=== PATIENT | female | born 1940 | race Caucasian/White ===

== ENCOUNTER 2019-06-11 13:45 | Outpatient (RCR) | payer MEDICARE, SELFPAY ==
[2019-05-21 13:58] VITALS: BP 126/79; PULSE 107; RESP 22; TEMP 36.5; BMI 29.2
[2019-05-21 16:59] LABS: Hematocrit 38.9 % (37-47); Hemoglobin 12.4 g/dL (12.0-15.0); Mean Corp Hgb Conc 31.9 g/dL (32-36); Mean Corpuscular Hgb 32.9 pg (27.0-32.0); Mean Corpuscular Volume 103.2 fL (81-99); Mean Platelet Vol. 11.8 fl (6.2-12.0); Platelet Count 109 K/mm3 (150-450); RBC Distribution Width SD 53.4 fl (35.1-43.9); Red Blood Count 3.77 M/mm3 (4.2-5.4)
[2019-05-21 17:08] LABS: Erythrocyte Sedimentation Rate 22 mm/hr (0-30)
--- NOTE | 2019-05-21 17:14 | PCM.WC.HP ---
(1) Ulcer of right lower extremity with fat layer exposed Status: Chronic Current Visit: Yes Code(s): L97.912 - Non-pressure chronic ulcer of unspecified part of right lower leg with fat layer exposed (2) Chronic stasis dermatitis Status: Chronic Current Visit: Yes Code(s): I87.2 - Venous insufficiency (chronic) (peripheral) (3) Cellulitis of right leg Status: Resolved Current Visit: Yes Code(s): L03.115 - Cellulitis of right lower limb (4) Venous stasis ulcer of right lower leg with edema of right lower leg Status: Chronic Current Visit: Yes Code(s): I83.019 - Varicose veins of right lower extremity with ulcer of unspecified site; I83.891 - Varicose veins of right lower extremity with other complications; L97.919 - Non-pressure chronic ulcer of unspecified part of right lower leg with unspecified severity; R60.9 - Edema, unspecified (5) Peripheral vascular disease Status: Chronic Current Visit: Yes Code(s): I73.9 - Peripheral vascular disease, unspecified (6) Bilateral lower extremity edema Status: Chronic Current Visit: Yes Code(s): R60.0 - Localized edema (7) T2DM (type 2 diabetes mellitus) Status: Chronic Current Visit: Yes Code(s): E11.9 - Type 2 diabetes mellitus without complications (8) FPC current use of anticoagulant Status: Chronic Current Visit: No Code(s): Z79.01 - FPC (current) use of anticoagulants (9) Afib Status: Chronic Current Visit: No Code(s): I48.91 - Unspecified atrial fibrillation (10) Hypothyroidism, secondary Status: Chronic Current Visit: No Code(s): E03.8 - Other specified hypothyroidism (11) Hyperlipidemia Status: Chronic Current Visit: No Code(s): E78.5 - Hyperlipidemia, unspecified History of Present Illness Date of Service: 05/21/19 Chief Complaint: Right leg ulcers History of Wound: Patient is a pleasant 78-year-old female who presents to the wound healing center today, 05/21/2019 for an initial evaluation of right lower extremity ulcers. She presents today with her and daughter. The ulcers of the right lower extremity occurred about 2 months ago. She was seen by her primary care provider, Dr. Brittanie Humphries, on 04/30/2019. At that time, patient was diagnosed with cellulitis and given a 10-day course of doxycycline and topical silvadene cream. Cellulitis appears to have resolved with use of antibiotics, but ulcerations persist. Patient's has been applying Silvadene to the ulcers, and covering with gauze daily. He reports a large amount of clear, nonpurulent, odorless drainage from the wound. The patient otherwise denies any fever, chills, nausea, vomiting, or diarrhea. Denies any signs of infection, including increasing pain, redness, swelling, or purulent/foul-smelling drainage from affected area. Patient has chronic swelling of bilateral lower extremities. She has a history of peripheral vascular disease with vascular interventions about 25 to 30 years ago in her left leg. She recalls having vascular studies and ABIs completed several years ago. Patient also has chronic venous stasis dermatitis, bilateral varicosities of lower extremities, type 2 diabetes mellitus, hypertension, hyperlipidemia, A. fib, and long-term use of anticoagulants. See [facility] for additional information. 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 (Chronic) Afib (Chronic) Bilateral lower extremity edema (Chronic) Hypothyroidism, secondary (Chronic) Hyperlipidemia (Chronic) Chronic stasis dermatitis (Chronic) Ulcer of right lower extremity with fat layer exposed (Chronic) Surgical History: - - vein removal in left leg Allergies/Adverse Reactions: Allergies No Known Allergies Allergy (Verified 05/21/19 14:32) Home Medications: Ambulatory Orders Medication Instructions Recorded Aspirin [Aspirin, Baby] 81 mg PO DAILY@0800 05/21/19 Atorvastatin Calcium 10 mg PO DAILY 05/21/19 Carbidopa/Levodopa [Carbidopa-Levo TID 05/21/19 25-100 mg Odt] Carvedilol 3.125 mg PO 05/21/19 Divalproex Sodium [Divalproex 250 mg PO 05/21/19 Sodium ER] Levothyroxine Sodium 50 mcg PO DAILY 05/21/19 Lisinopril 2.5 mg PO DAILY 05/21/19 Nitroglycerin SL (ED ONLY) 0.4 mg SUBLINGUAL X1 05/21/19 [Nitrostat] Spironolactone 25 mg BID 05/21/19 Topiramate 25 BID 05/21/19 Torsemide 20 mg PO DAILY 05/21/19 Vit A/Vit C/Vit E/Zinc/Copper 05/21/19 [Preservision Areds Tablet] Warfarin Sodium 4 mg PO DAILY 05/21/19 Smoking Status: Former smoker Tobacco Use: Non-smoker Review of Systems Constitutional: Denies: Chills, Fever, Weight Change Eyes: Denies: Pain, Vision Change HEENT: Denies: Difficulty Swallowing, Sinus Congestion Cardiovascular: Reports: Palpitations, - - chronic afib. Denies: Chest Pain Respiratory: Denies: Cough, Shortness of Breath, Wheezing Gastrointestinal: Denies: Diarrhea, Nausea, Vomiting Genitourinary: Denies: Dysuria, Hematuria Musculoskeletal: Reports: Leg Pain - BLE Skin: Reports: Wounds - RLE ulcerations Neurological: Denies: Double vision, Slurred speech, Focal weakness Endocrine: Denies: Heat/ Cold Intolerance, Polydipsia, Polyuria Hematologic/ Lymphatic: Reports: Easy Bruising, Easy Bleeding - joint terminal attack controller coumadin tx d/t afib - Physical Exam Vital Signs Temp Pulse Resp BP 97.7 F L 107 H 22 H 126/79 H 05/21/19 13:58 05/21/19 13:58 05/21/19 13:58 05/21/19 13:58 General: Alert, Oriented x3, Cooperative, No apparent distress HEENT: Atraumatic, EOMI, Normocephalic Oral: Moist Mucosa Neck: Supple, No JVD, Trachea Midline Lungs: Clear to auscultation, Normal air movement, No rhonchi, No wheeze, No rales Cardiovascular: Irregular Rate - afib, - - Varicosities of bilateral lower extremities. Abdomen: Bowel Sounds Present, Soft, Non Tender Extremities: No clubbing, No cyanosis, Capillary Refill Less than 3 Seconds, No Calf Tenderness, Diminished Peripheral Pulses, Edema - 2+ pitting edema of BLE, Tenderness - tenderness to palpation of BLE Skin: No rashes - cellulitis resolved, Ulcer/ Wound - Right lower extremity ulcerations. Mild erythema surrounding ulcerations, no purulent/foul-smelling discharge. Large amounts of clear drainage, which appears to be weeping interstitial fluid draining from wounds. Tender to palpation/manipulation of wounds. Wound Measurements and Assessment WC - Nurse 1 - General Ulcer Measurement Start: 05/21/19 13:48 Freq: Status: Active Protocol: Activity Type Activity Date Activity User E-Sign Co-Sign Detail Recorded Client Recorded Date Recorded By Document 05/21/19 13:58 DL [id number] 05/21/19 14:26 DL 05/21/19 13:58 Wound Center Nurse 1 [Ulcer Assessment] #2 Lateral RLE -Current Size (cm) - Length 2.3 -Current Size (cm) - Width 1.4 -Current Size (cm) - Depth 0.1 -Total Square Cm 3.22 -Photo Taken Yes -Exudate Amt Medium -Exudate Type Serosanguineous -Wound Margin Indistinct, Non -Visible -Granulation Amt None Present (0 %) -Necrosis Amt Small (1-33%) -Necrotic Tissue Type Adherent Slough -Structure Exposed N/A -Texture (Leena-wound Skin Appearance) Localized Edema ,Scarring -Moisture (Leena-wound Skin Appearance Weeping ) -Color (Leena-wound Skin Appearance) Erythema, Hemosiderin Staining -Temperature (Leena-wound Skin No Abnormality Appearance) (Pt Warm) -Tenderness on Palpation (Leena-wound No Skin Appearance) -Ulcer Cleansing Wound Cleanser -Foul Odor after Cleansing No -Anesthetic Used 4% Lidocaine Solution #1 Medial RLE Cluster -Current Size (cm) - Length 1.4 -Current Size (cm) - Width 1.8 -Current Size (cm) - Depth 0.1 -Total Square Cm 2.52 -Photo Taken Yes -Exudate Amt Medium -Exudate Type Serosanguineous -Wound Margin Indistinct, Non -Visible -Granulation Amt None Present (0 %) -Necrosis Amt Small (1-33%) -Necrotic Tissue Type Adherent Slough -Structure Exposed N/A -Texture (Leena-wound Skin Appearance) Localized Edema ,Scarring -Moisture (Leena-wound Skin Appearance Weeping,Dry/ ) Scaly -Color (Leena-wound Skin Appearance) Erythema, Hemosiderin Staining -Temperature (Leena-wound Skin No Abnormality Appearance) (Pt Warm) -Tenderness on Palpation (Leena-wound No Skin Appearance) -Ulcer Cleansing Wound Cleanser -Foul Odor after Cleansing No -Anesthetic Used 5% Lidocaine Gel [Edema Assessment] -Right Calf (cm) 40 -Right Ankle (cm) 22.8 -Left Calf (cm) 39.6 -Left Ankle (cm) 23.2 WC - Nurse 2 - General Ulcer CM Notes Start: 05/21/19 13:48 Freq: Status: Active Protocol: Activity Type Activity Date Activity User E-Sign Co-Sign Detail Recorded Client Recorded Date Recorded By Document 05/21/19 15:24 DV [id number] 05/21/19 15:34 DV 05/21/19 15:24 Wound Center Nurse 2 [Procedure/Treatment] #2 Lateral RLE -Time 15:29 -Correct Patient Yes -Correct Side, Site, Position Yes -Correct Procedure Yes -Procedure Performed Yes -Type of Procedure Debridement -Clinical Debridement Subcutaneous -Post Debridement Size (cm) - Length 0.9 -Post Debridement Size (cm) - Width 0.8 -Post Debridement Size (cm) - Depth 0.2 -Total Square Cm 0.72 -Wound/Ulcer Outcome Not Healed -Ulcer Cleansing Rinsed/ Irrigated with Saline -Foul Odor after Cleansing No -Bioengineered Tissue No -Bleeding Controlled with Pressure -Offloading No -Treatment Response Procedure Tolerated Well #1 Medial RLE Cluster -Time 15:28 -Correct Patient Yes -Correct Side, Site, Position Yes -Correct Procedure Yes -Procedure Performed Yes -Type of Procedure Debridement -Clinical Debridement Subcutaneous -Post Debridement Size (cm) - Length 1.0 -Post Debridement Size (cm) - Width 1.9 -Post Debridement Size (cm) - Depth 0.1 -Total Square Cm 1.90 -Wound/Ulcer Outcome Not Healed -Ulcer Cleansing Rinsed/ Irrigated with Saline -Foul Odor after Cleansing No -Bioengineered Tissue No -Bleeding Controlled with Pressure -Offloading No -Treatment Response Procedure Tolerated Well [See Physician Procedure note for Specifics] Pain Scale: 0-10 Numeric [Pain] -Is Patient Pain Free? Yes Musculoskeletal: Tenderness - Tenderness on palpation/manipulation of ulcerations of right lower extremity. Psych/Mental Status: Normal Affect, Appropriate Debridement Note Post-Debridement Measurements/Treatment WC - Nurse 2 - General Ulcer CM Notes Start: 05/21/19 13:48 Freq: Status: Active Protocol: Activity Type Activity Date Activity User E-Sign Co-Sign Detail Recorded Client Recorded Date Recorded By Document 05/21/19 15:24 DV [id number] 05/21/19 15:34 DV 05/21/19 15:24 Wound Center Nurse 2 #2 Lateral RLE -Time 15:29 -Correct Patient Yes -Correct Side, Site, Position Yes -Correct Procedure Yes -Procedure Performed Yes -Type of Procedure Debridement -Clinical Debridement Subcutaneous -Post Debridement Size (cm) - Length 0.9 -Post Debridement Size (cm) - Width 0.8 -Post Debridement Size (cm) - Depth 0.2 -Total Square Cm 0.72 -Wound/Ulcer Outcome Not Healed -Ulcer Cleansing Rinsed/ Irrigated with Saline -Foul Odor after Cleansing No -Bioengineered Tissue No -Bleeding Controlled with Pressure -Offloading No -Treatment Response Procedure Tolerated Well #1 Medial RLE Cluster -Time 15:28 -Correct Patient Yes -Correct Side, Site, Position Yes -Correct Procedure Yes -Procedure Performed Yes -Type of Procedure Debridement -Clinical Debridement Subcutaneous -Post Debridement Size (cm) - Length 1.0 -Post Debridement Size (cm) - Width 1.9 -Post Debridement Size (cm) - Depth 0.1 -Total Square Cm 1.90 -Wound/Ulcer Outcome Not Healed -Ulcer Cleansing Rinsed/ Irrigated with Saline -Foul Odor after Cleansing No -Bioengineered Tissue No -Bleeding Controlled with Pressure -Offloading No -Treatment Response Procedure Tolerated Well Pain Scale: 0-10 Numeric Is Patient Pain Free? Yes Wound debrided: Medial RLE ulcer cluster Laterality: Right Type of Debridement: Excisional debridement Anesthesia Used: 5% Lidocaine Gel Depth: in the subcutaneous layer Percentage of wound debrided: 100 Instrument Used: 5mm curette Tissue Removed: Slough devitalized tissue Severity: Fat Layer Exposed Amount of bleeding with debridement: Mild Bleeding Controlled with: Compression and gauze Patient tolerated procedure well - Additional Wound Wound debrided: Lateral RLE ulcer Laterality: Right Type of Debridement: Excisional debridement Anesthesia Used: 4% Lidocaine Solution Depth: in the subcutaneous layer Percentage of wound debrided: 100 Instrument Used: 5mm curette Tissue Removed: Slough and devitalized tissue Severity: Fat Layer Exposed Amount of bleeding with debridement: Mild Bleeding Controlled with: Compression and gauze Patient tolerated procedure: Patient tolerated procedure well Assessment/Plan Active Problems Venous stasis ulcer of right lower leg with edema of right lower leg (Chronic) Peripheral vascular disease (Chronic) T2DM (type 2 diabetes mellitus) (Chronic) Bilateral lower extremity edema (Chronic) Chronic stasis dermatitis (Chronic) Ulcer of right lower extremity with fat layer exposed (Chronic) Assessment: Venous stasis ulcer of right lower extremity. Bilateral lower extremity edema. Peripheral vascular disease. Chronic stasis dermatitis. Cellulitis-- resolved. T2DM. A. fib. Long-term current use of anticoagulants. Hypertension. Hypothyroidism. Hyperlipidemia Plan: Debridement performed today in clinic as annotated above. Melgisorb applied to right lower extremity ulcers, covered with gauze and ABD and secured with tape. Light single-layer Tubigrip applied to right lower extremity. At home wound-care instructions: Change Melgisorb dressing daily. Cover with gauze and ABD pad to absorb any excess drainage. May remove dressing to shower. Compression: Single-layer Tubigrip. Off-loading: Keep legs elevated at or above waist level when seated. Avoid long periods of standing, or dangling of the legs. Diet: Patient encouraged to increase protein and vitamin C intake while taking caution to avoid high carbohydrate and/or sugar intake. Labs/cultures/imaging: Routine baseline labwork ordered. Venous and arterial studies ordered. Follow-up: Return to clinic in 1 week for re-evaluation. Return sooner or report to the emergency room should symptoms worsen, or new symptoms arise. Code Visit Office Visits / Consults: [id number] OV L4 New [id number]: [id number] Lachelle subq tissue 20 sq cm/<
[2019-05-21 17:28] LABS: Hemoglobin A1c 6.8 % (4.2-6.3)
[2019-05-21 17:32] LABS: ALB/GLOB Ratio 0.8 RATIO (0.9-2.4); AST(SGOT) 12 U/L (15-37); Alanine Aminotransfer ALT/SGPT 9 U/L (13-56); Albumin, Serum 3.2 g/dL (3.2-5.0); Alkaline Phosphatase 65 U/L (45-117); Anion Gap 6 (5-15); BUN 23 mg/dL (7-18); BUN/Creat Ratio 21.3 RATIO (10-20); Calcium,Total 8.9 mg/dL (8.5-10.1); Chloride 111 mmol/L (98-107); Creatinine, Serum 1.08 mg/dL (0.55-1.02); EST Glomerular Filtration Rate 52 mL/min (>60); Est Glom Filt Rate - Afr Amer 63 mL/min (>60); Estimated Creatinine Clearance 40.19 ml/min; Globulin 4.2 g/dL (2.2-4.2); Glucose 113 mg/dL (74-106); Potassium 4.5 mmol/L (3.5-5.1); Prealbumin 21.2 mg/dL (20.0-40.0); Protein, Total 7.4 g/dL (6.4-8.2); Sodium Level 140 mmol/L (136-145)
[2019-05-28 14:06] VITALS: RESP 18; TEMP 36.4; BMI 29.2
[2019-05-28 18:56] LABS: M R Staph aureus DNA By PCR Negative (Negative); Probe Check PASS; Specimen Processing Control PASS; Staph aureus DNA By PCR NEGATIVE (Negative)
--- NOTE | 2019-05-29 11:51 | PN.PCM_ITS ---
(1) Ulcer of right lower extremity with fat layer exposed Status: Chronic Current Visit: Yes Code(s): L97.912 - Non-pressure chronic ulcer of unspecified part of right lower leg with fat layer exposed (2) Chronic stasis dermatitis Status: Chronic Current Visit: Yes Code(s): I87.2 - Venous insufficiency (chronic) (peripheral) (3) Cellulitis of right leg Status: Resolved Current Visit: No Code(s): L03.115 - Cellulitis of right lower limb (4) Venous stasis ulcer of right lower leg with edema of right lower leg Status: Chronic Current Visit: Yes Code(s): I83.019 - Varicose veins of right lower extremity with ulcer of unspecified site; I83.891 - Varicose veins of right lower extremity with other complications; L97.919 - Non-pressure chronic ulcer of unspecified part of right lower leg with unspecified severity; R60.9 - Edema, unspecified (5) Peripheral vascular disease Status: Chronic Current Visit: Yes Code(s): I73.9 - Peripheral vascular disease, unspecified (6) Bilateral lower extremity edema Status: Chronic Current Visit: Yes Code(s): R60.0 - Localized edema (7) T2DM (type 2 diabetes mellitus) Status: Chronic Current Visit: No Code(s): E11.9 - Type 2 diabetes mellitus without complications (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 Status: Chronic Current Visit: No Code(s): Z79.01 - long-term (current) use of anticoagulants (9) Afib Status: Chronic Current Visit: No Code(s): I48.91 - Unspecified atrial fibrillation (10) Hypothyroidism, secondary Status: Chronic Current Visit: No Code(s): E03.8 - Other specified hypothyroidism (11) Hyperlipidemia Status: Chronic Current Visit: No Code(s): E78.5 - Hyperlipidemia, unspecified Type of Wound Date of Service: 05/28/19 Chief Complaint: Right leg ulcers History of Wound: Patient is a pleasant 78-year-old female who presents to the wound healing center 05/21/2019 for an initial evaluation of right lower extremity ulcers. She presents today with her and daughter. The ulcers of the right lower extremity occurred about 2 months ago. She was seen by her primary care provider, Dr. Brittanie Humphries, on 04/30/2019. At that time, patient was diagnosed with cellulitis and given a 10-day course of doxycycline and topical silvadene cream. Cellulitis appears to have resolved with use of antibiotics, but ulcerations persist. Patient's has been applying Silvadene to the ulcers, and covering with gauze daily. He reports a large amount of clear, nonpurulent, odorless drainage from the wound. The patient otherwise denies any fever, chills, nausea, vomiting, or diarrhea. Denies any signs of infection, including increasing pain, redness, swelling, or purulent/foul-smelling drainage from affected area. Patient has chronic swelling of bilateral lower extremities. She has a history of peripheral vascular disease with vascular interventions about 25 to 30 years ago in her left leg. She recalls having vascular studies and ABIs completed several years ago. Patient also has chronic venous stasis dermatitis, bilateral varicosities of lower extremities, type 2 diabetes mellitus, hypertension, hyperlipidemia, A. fib, and long-term use of anticoagulants. See [facility] for additional information. Progress of Wound: No significant improvement in size of right lower extremity ulcers. New ulcer has developed on right lateral leg, below-knee, and several smaller ulcers have developed within the right quinteros cluster. The ulcers c ontinue to drain a large amount of serous fluid. Patient has also developed a red, itchy rash on bilateral lower extremities, but primarily affecting her right. This appears to be a form of dermatitis. Patient's and daughter report that she has suffered with this type of rash for several years, and was previously seen by a advisory services associate, but no changes to treatment were made. The patient denies any fever, chills, nausea, vomiting, or diarrhea. Denies any increasing pain, swelling, or purulent/foul-smelling drainage from affected area. - Physical Exam Vital Signs Temp Pulse Resp BP 97.6 F L 107 H 18 126/79 H 05/28/19 14:06 05/21/19 13:58 05/28/19 14:06 05/21/19 13:58 General: Alert, Cooperative, No apparent distress HEENT: Atraumatic, EOMI, Normocephalic Oral: Moist Mucosa Neck: Supple, No JVD, Trachea Midline Lungs: Normal air movement Cardiovascular: Regular rate Extremities: No clubbing, No cyanosis, Edema - 2+ pitting edema of BLE, Tender ness - Tenderness to palpation of BLE Skin: Ulcer/ Wound - Right lower extremity ulcerations. Moderate increase in erythema surrounding ulcerations, no purulent/foul-smelling discharge. Large amounts of serous drainage, which appears to be weeping interstitial fluid draining from wounds. Tender to palpation/manipulation of wounds., Rash Present - Erythematous, dry, papular rash of bilateral lower extremities, right worse than left. Rash also present on bilateral arms and hands. Wound Measurements and Assessment WC - Nurse 1 - General Ulcer Measurement Start: 05/21/19 13:48 Freq: Status: Active Protocol: Activity Type Activity Date Activity User E-Sign Co-Sign Detail Recorded Client Recorded Date Recorded By Document 05/28/19 14:06 [facility] [id number] 05/28/19 14:16 [facility] 05/28/19 14:06 Wound Center Nurse 1 [Ulcer Assessment] #2 Right Quinteros Cluster -Combined with other wound No -Current Size (cm) - Length 0.6 -Current Size (cm) - Width 0.6 -Current Size (cm) - Depth 0.2 -Total Square Cm 0.36 -Photo Taken No -Epithelialization None Present -Tunneling No -Undermining/Tunneling No -Circular Undermining No -Exudate Amt Small -Exudate Type Serosanguineous -Wound Margin Distinct, Outline Attached -Granulation Amt None Present (0 %) -Slough/Fibrin Yes -Necrosis Amt Large (67-100%) -Necrotic Tissue Type Adherent Slough -Texture (Ivonne-wound Skin Appearance) Assessed, Scarring -Moisture (Ivonne-wound Skin Appearance Assessed,Dry/ ) Scaly -Color (Ivonne-wound Skin Appearance) Assessed, Hemosiderin Staining -Temperature (Ivonne-wound Skin No Abnormality Appearance) (Pt Warm) -Tenderness on Palpation (Ivonne-wound Yes Skin Appearance) -Ulcer Cleansing Rinsed/ Irrigated with Saline -Foul Odor after Cleansing No -Anesthetic Used 4% Lidocaine Solution #1 Medial RLE Cluster -Combined with other wound No -Current Size (cm) - Length 1.3 -Current Size (cm) - Width 1.7 -Current Size (cm) - Depth 0.2 -Total Square Cm 2.21 -Photo Taken No -Epithelialization None Present -Tunneling No -Undermining/Tunneling No -Circular Undermining No -Exudate Amt Small -Exudate Type Serosanguineous -Wound Margin Distinct, Outline Attached -Granulation Amt None Present (0 %) -Slough/Fibrin Yes -Necrosis Amt Large (67-100%) -Necrotic Tissue Type Adherent Slough -Texture (Ivonne-wound Skin Appearance) Assessed, Scarring -Moisture (Ivonne-wound Skin Appearance Assessed,Dry/ ) Scaly -Color (Ivonne-wound Skin Appearance) Assessed, Hemosiderin Staining -Temperature (Ivonne-wound Skin No Abnormality Appearance) (Pt Warm) -Tenderness on Palpation (Ivonne-wound Yes Skin Appearance) -Ulcer Cleansing Rinsed/ Irrigated with Saline -Foul Odor after Cleansing No -Anesthetic Used 4% Lidocaine Solution [Edema Assessment] -Lower Limb Edema Present Yes -Right Calf (cm) 39.6 -Right Ankle (cm) 23.4 WC - Nurse 2 - General Ulcer CM Notes Start: 05/21/19 13:48 Freq: Status: Active Protocol: Activity Type Activity Date Activity User E-Sign Co-Sign Detail Recorded Client Recorded Date Recorded By Document 05/28/19 14:39 DV [id number] 05/28/19 14:51 DV 05/28/19 14:39 Wound Center Nurse 2 [Procedure/Treatment] #3 Lateral RLE -Time 14:50 -Correct Patient Yes -Correct Side, Site, Position Yes -Correct Procedure Yes -Procedure Performed Yes -Type of Procedure Debridement -Clinical Debridement Subcutaneous -Post Debridement Size (cm) - Length 0.5 -Post Debridement Size (cm) - Width 0.7 -Post Debridement Size (cm) - Depth 0.1 -Total Square Cm 0.35 -Wound/Ulcer Outcome Not Healed -Ulcer Cleansing Rinsed/ Irrigated with Saline -Foul Odor after Cleansing No -Bioengineered Tissue No -Bleeding Controlled with Pressure -Offloading No -Treatment Response Procedure Tolerated Well #2 Right Quinteros Cluster -Time 14:44 -Correct Patient Yes -Correct Side, Site, Position Yes -Correct Procedure Yes -Procedure Performed Yes -Type of Procedure Debridement -Clinical Debridement Subcutaneous -Post Debridement Size (cm) - Length 3.0 -Post Debridement Size (cm) - Width 2.0 -Post Debridement Size (cm) - Depth 0.2 -Total Square Cm 6.00 -Wound/Ulcer Outcome Not Healed -Ulcer Cleansing Rinsed/ Irrigated with Saline -Foul Odor after Cleansing No -Bioengineered Tissue No -Bleeding Controlled with Pressure -Offloading No -Treatment Response Procedure Tolerated Well #1 Medial RLE Cluster -Time 14:42 -Correct Patient Yes -Correct Side, Site, Position Yes -Correct Procedure Yes -Procedure Performed Yes -Type of Procedure Debridement -Clinical Debridement Subcutaneous -Post Debridement Size (cm) - Length 2.0 -Post Debridement Size (cm) - Width 0.7 -Post Debridement Size (cm) - Depth 0.2 -Total Square Cm 1.40 -Wound/Ulcer Outcome Not Healed [See Physician Procedure note for Specifics] Pain Scale: 0-10 Numeric [Pain] -Is Patient Pain Free? Yes Musculoskeletal: Tenderness - Tenderness to palpation/manipulation of wounds Psych/Mental Status: Normal Affect, Appropriate Debridement Note Post-Debridement Measurements/Treatment WC - Nurse 2 - General Ulcer CM Notes Start: 05/21/19 13:48 Freq: Status: Active Protocol: Activity Type Activity Date Activity User E-Sign Co-Sign Detail Recorded Client Recorded Date Recorded By Document 05/21/19 15:24 DV [id number] 05/21/19 15:34 DV Document 05/28/19 14:39 DV [id number] 05/28/19 14:51 DV 05/21/19 05/28/19 15:24 14:39 Wound Center Nurse 2 #3 Lateral RLE -Time 14:50 -Correct Patient Yes -Correct Side, Site, Position Yes -Correct Procedure Yes -Procedure Performed Yes -Type of Procedure Debridement -Clinical Debridement Subcutaneous -Post Debridement Size (cm) - Length 0.5 -Post Debridement Size (cm) - Width 0.7 -Post Debridement Size (cm) - Depth 0.1 -Total Square Cm 0.35 -Wound/Ulcer Outcome Not Healed -Ulcer Cleansing Rinsed/ Irrigated with Saline -Foul Odor after Cleansing No -Bioengineered Tissue No -Bleeding Controlled with Pressure -Offloading No -Treatment Response Procedure Tolerated Well #2 Right Quinteros Cluster -Time 15:29 14:44 -Correct Patient Yes Yes -Correct Side, Site, Position Yes Yes -Correct Procedure Yes Yes -Procedure Performed Yes Yes -Type of Procedure Debridement Debridement -Clinical Debridement Subcutaneous Subcutaneous -Post Debridement Size (cm) - Length 0.9 3.0 -Post Debridement Size (cm) - Width 0.8 2.0 -Post Debridement Size (cm) - Depth 0.2 0.2 -Total Square Cm 0.72 6.00 -Wound/Ulcer Outcome Not Healed Not Healed -Ulcer Cleansing Rinsed/ Rinsed/ Irrigated with Irrigated with Saline Saline -Foul Odor after Cleansing No No -Bioengineered Tissue No No -Bleeding Controlled with Pressure Pressure -Offloading No No -Treatment Response Procedure Procedure Tolerated Well Tolerated Well #1 Medial RLE Cluster -Time 15:28 14:42 -Correct Patient Yes Yes -Correct Side, Site, Position Yes Yes -Correct Procedure Yes Yes -Procedure Performed Yes Yes -Type of Procedure Debridement Debridement -Clinical Debridement Subcutaneous Subcutaneous -Post Debridement Size (cm) - Length 1.0 2.0 -Post Debridement Size (cm) - Width 1.9 0.7 -Post Debridement Size (cm) - Depth 0.1 0.2 -Total Square Cm 1.90 1.40 -Wound/Ulcer Outcome Not Healed Not Healed -Ulcer Cleansing Rinsed/ Irrigated with Saline -Foul Odor after Cleansing No -Bioengineered Tissue No -Bleeding Controlled with Pressure -Offloading No -Treatment Response Procedure Tolerated Well Pain Scale: 0-10 Numeric Is Patient Pain Free? Yes Yes Wound debrided: Medial RLE cluster Laterality: Right Type of Debridement: Excisional debridement Anesthesia Used: 5% Lidocaine Gel Depth: in the subcutaneous layer Percentage of wound debrided: 100 Instrument Used: 3mm curette Tissue Removed: Slough and devitalized tissue Severity: Fat Layer Exposed Amount of bleeding with debridement: Mild Bleeding Controlled with: Compression and gauze Patient tolerated procedure well - Additional Wound Wound debrided: RLE quinteros cluster Laterality: Right Type of Debridement: Excisional debridement Anesthesia Used: 5% Lidocaine Gel Depth: in the subcutaneous layer Percentage of wound debrided: 100 Instrument Used: 3mm curette Tissue Removed: Slough and devitalized tissue Severity: Fat Layer Exposed Amount of bleeding with debridement: Mild Bleeding Controlled with: Compression and gauze Patient tolerated procedure: Patient tolerated procedure well - Additional Wound Wound debrided: Lateral RLE Laterality: Right Type of Debridement: Excisional debridement Anesthesia Used: 5% Lidocaine Gel Depth: in the subcutaneous layer Percentage of wound debrided: 100 Instrument Used: 3mm curette Tissue Removed: Slough and devitalized tissue Severity: Fat Layer Exposed Amount of bleeding with debridement: Mild Bleeding Controlled with: Compression and gauze Patient tolerated procedure: Patient tolerated procedure well Assessment/Plan Active Problems Venous stasis ulcer of right lower leg with edema of right lower leg (Chronic) Peripheral vascular disease (Chronic) Bilateral lower extremity edema (Chronic) Chronic stasis dermatitis (Chronic) Ulcer of right lower extremity with fat layer exposed (Chronic) Assessment: Venous stasis ulcer of right lower extremity. Bilateral lower extremity edema. Peripheral vascular disease. Chronic stasis dermatitis. Cellulitis-- resolved. T2DM. A. fib. Long-term current use of anticoagulants. Hypertension. Hypothyroidism. Hyperlipidemia Plan: Debridement performed today in clinic as annotated above. Aquacel Ag applied to right lower extremity ulcers, covered with gauze and secured with tape. Light single-layer Tubigrip applied to right lower extremity. At home wound-care instructions: Change Aquacel AG dressing daily. Cover with gauze and ABD pad to absorb any excess drainage. May remove dressing to shower. No soaking or submerging of wounds. Prescription given for triamcinolone 0.5% ointment. Apply 2-3x/ day to the ivonne-ulcer areas, but do not place on any open wounds/ulcers. Prescription for clindamycin given due to concern for infection. Cultures collected, we will call with any changes to antibiotic therapy. Compression: Single-layer Tubigrip. Will await results of ABIs before increasing compression. Off-loading: Keep legs elevated at or above waist level when seated. Avoid long periods of standing, or dangling of the legs. Diet: Patient encouraged to increase protein and vitamin C intake while taking caution to avoid high carbohydrate and/or sugar intake. Labs/cultures/imaging: Culture collected from right quinteros ulcer. Routine baseline labwork reviewed. Venous and arterial studies ordered-scheduled for 05/31/2019. Follow-up: Return to clinic in 1 week for re-evaluation. Return sooner or report to the emergency room should symptoms worsen, or new symptoms arise. Note: [employer] speech recognition supervisor publications production software was used to create portions of this document. Sound-alike and misspelled words, as well as other supervisor publications production errors may be contained in the documentation. Code Visit [id number]: [id number] Lachelle subq tissue 20 sq cm/<
[2019-06-07 09:02] VITALS: BP 103/53; PULSE 73; RESP 20; TEMP 36.7; BMI 29.2
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
[2019-06-11 13:55] VITALS: BP 141/45; PULSE 83; RESP 16; TEMP 36.1; BMI 29.2
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
== END 2019-06-14 23:59 ==
LOC: WC 13:45
PROVIDERS: Family Provider Internal Medicine; PCP Internal Medicine; Referring Provider Nurse Practitioner Family; Visit Provider Nurse Practitioner Family
DX: I83.018 Varicose veins of right lower extremity with ulcer other part of lower leg (principal); L97.812 Non-pressure chronic ulcer of other part of right lower leg with fat layer exposed; E11.9 Type 2 diabetes mellitus without complications; I48.20 Chronic atrial fibrillation, unspecified; E03.8 Other specified hypothyroidism; E78.5 Hyperlipidemia, unspecified; I10 Essential (primary) hypertension; E11.51 Type 2 diabetes mellitus with diabetic peripheral angiopathy without gangrene; Z79.899 Other long term (current) drug therapy; Z79.01 Long term (current) use of anticoagulants; Z79.82 Long term (current) use of aspirin; Z87.891 Personal history of nicotine dependence; T21.14XA Burn of first degree of lower back, initial encounter; X08.8XXA Exposure to other specified smoke, fire and flames, initial encounter; S51.811A Laceration without foreign body of right forearm, initial encounter; W22.01XA Walked into wall, initial encounter; Y93.01 Activity, walking, marching and hiking; Y92.89 Other specified places as the place of occurrence of the external cause
CPT/HCPCS: 11042; 80053; 83036; 84134; 85027; 85652; 87070; 87075; 87077; 87186; 87205; 87640; 99204; G0463

== ENCOUNTER 2019-07-12 13:00 | Outpatient (RCR) | payer MEDICARE, SELFPAY ==
[2019-06-15 01:05] VITALS: BP 141/45; PULSE 83; RESP 16; TEMP 36.1
[2019-06-18 13:15] VITALS: BP 112/87; PULSE 87; RESP 20; TEMP 36.9; BMI 29.2
--- NOTE | 2019-06-18 16:34 | PCM.WC.PN ---
(1) Skin tear of right forearm without complication Status: Acute Current Visit: Yes Qualifiers: Encounter type: subsequent encounter Qualified Code(s): S51.811D - Laceration without foreign body of right forearm, subsequent encounter Code(s): S51.811A - Laceration without foreign body of right forearm, initial encounter (2) Bilateral lower extremity edema Status: Chronic Current Visit: Yes Code(s): R60.0 - Localized edema (3) Chronic stasis dermatitis Status: Chronic Current Visit: Yes Code(s): I87.2 - Venous insufficiency (chronic) (peripheral) (4) Peripheral vascular disease Status: Chronic Current Visit: Yes Code(s): I73.9 - Peripheral vascular disease, unspecified (5) T2DM (type 2 diabetes mellitus) Status: Chronic Current Visit: No Code(s): E11.9 - Type 2 diabetes mellitus without complications (6) Ulcer of right lower extremity with fat layer exposed Status: Chronic Current Visit: Yes Code(s): L97.912 - Non-pressure chronic ulcer of unspecified part of right lower leg with fat layer exposed (7) Venous stasis ulcer of right lower leg with edema of right lower leg Status: Chronic Current Visit: Yes Code(s): I83.019 - Varicose veins of right lower extremity with ulcer of unspecified site; I83.891 - Varicose veins of right lower extremity with other complications; L97.919 - Non-pressure chronic ulcer of unspecified part of right lower leg with unspecified severity; R60.9 - Edema, unspecified Type of Wound Date of Service: 06/18/19 Chief Complaint: Right leg ulcers; burn on back (resolved); skin tear of right forearm History of Wound: Patient is a pleasant 78-year-old female who presented to the wound healing center on 05/21/2019 for an initial evaluation of right lower extremity ulcers. The ulcers of the right lower extremity occurred about 2 months prior. She was seen by her primary care provider, Dr. Brittanie Humphries, on 04/30/2019. At that time, patient was diagnosed with cellulitis and given a 10-day course of doxycycline and topical silvadene cream. Cellulitis appears to have resolved with use of antibiotics, but ulcerations persist. Patient's has been applying Silvadene to the ulcers, and covering with gauze daily. He reports a large amount of clear, nonpurulent, odorless drainage from the wound. The patient otherwise denies any fever, chills, nausea, vomiting, or diarrhea. Denies any signs of infection, including increasing pain, redness, swelling, or purulent/foul-smelling drainage from affected area. Patient has chronic swelling of bilateral lower extremities. She has a history of peripheral vascular disease with vascular interventions about 25 to 30 years ago in her left leg. She recalls having vascular studies and ABIs completed several years ago. Patient also has chronic venous stasis dermatitis, bilateral varicosities of lower extremities, type 2 diabetes mellitus, hypertension, hyperlipidemia, A. fib, and long-term use of anticoagulants. See [facility] for additional information. In mid-May 2019, patient was admitted to [facility] for a cardioversion and suffered 1st degree loera to her back as a result. She was given Silvadene cream to apply to loera, which she states helped with pain. The burn resolved within 1 week and patient was instructed to stop Silvadene cream. She has an upcoming follow-up appt with her PCP for further monitoring. On 06/11/2019, patient reports she was walking out of the bathroom and hit her right forearm on the wooden door, creating a skin tear. She reports a large amount of bleeding, which eventually subsided with compression. She had been keeping the skin tear covered with gauze dressing until evaluated at the [facility]. She was then switched to Adaptic and gauze dressings. Progress of Wound: Skin tear of right forearm is healing well without signs of infection. Patient is keeping RFA covered with Adaptic and gauze dressings. Patient denies any increasing pain, swelling, or erythema of right forearm. She denies any drainage from the right forearm skin tears. Ulcers of right lower extremity are very dry at today's visit, with dried blood and devitalized tissue present in wound bed. Patient reports no drainage from right lower extremity ulcers in the last week. The red, itchy rash on her right lower extremity has resolved, and the dry skin of her right lower extremity has improved with the use of triamcinolone ointment. The patient denies any fever, chills, nausea, vomiting, or diarrhea. Denies any increasing pain, redness, swelling, or purulent/foul-smelling drainage from affected areas. Patient has vascular studies scheduled for 06/20/2019. - Physical Exam Vital Signs Temp Pulse Resp BP 98.5 F 87 20 H 112/87 H 06/18/19 13:15 06/18/19 13:15 06/18/19 13:15 06/18/19 13:15 General: Alert, Cooperative, No apparent distress HEENT: Atraumatic, EOMI, Normocephalic Oral: Moist Mucosa Lungs: Normal air movement Cardiovascular: Irregular Rate Extremities: No clubbing, No cyanosis, Capillary Refill Less than 3 Seconds, Diminished Peripheral Pulses, Edema - 1+ pitting edema bilateral lower extremities. Several varicosities present in bilateral lower extremities., Tenderness - Tenderness to palpation of bilateral lower extremities. Skin: No rashes - Rash of right lower extremity is resolved. Dry, scaly skin of right lower extremity is improved., Ulcer/ Wound - Right lower extremity ulcerations with fat layer exposed. RLE ulcers with moderate to large amounts of dried blood and devitalized tissue present. Leena-ulcer erythema is stable. No purulent/foul-smelling drainage. No warmth to palpation. Bilateral lower extremities tender to palpation. No tunneling or undermining of ulcers, no probing to bone. Wound Measurements and Assessment WC - Nurse 1 - General Ulcer Measurement Start: 06/18/19 13:14 Freq: Status: Active Protocol: Activity Type Activity Date Activity User E-Sign Co-Sign Detail Recorded Client Recorded Date Recorded By Document 06/18/19 13:15 DL [id number] 06/18/19 13:25 DL 06/18/19 13:15 Wound Center Nurse 1 [Ulcer Assessment] #4- RFA SKIN TEAR CLUSTER -Current Size (cm) - Length 3.3 -Current Size (cm) - Width 6.3 -Current Size (cm) - Depth 0.2 -Total Square Cm 20.79 -Photo Taken No -Exudate Amt None Present -Wound Margin Distinct, Outline Attached -Granulation Amt None Present (0 %) -Necrosis Amt Large (67-100%) -Necrotic Tissue Type Adherent Slough -Structure Exposed N/A -Texture (Leena-wound Skin Appearance) Localized Edema ,Scarring -Moisture (Leena-wound Skin Appearance Dry/Scaly ) -Color (Leena-wound Skin Appearance) Hemosiderin Staining,Rubor -Temperature (Leena-wound Skin No Abnormality Appearance) (Pt Warm) -Tenderness on Palpation (Leena-wound No Skin Appearance) -Ulcer Cleansing Rinsed/ Irrigated with Saline -Foul Odor after Cleansing No -Anesthetic Used 4% Lidocaine Solution #3- LATERAL RLE - SUPERIOR -Current Size (cm) - Length 0.3 -Current Size (cm) - Width 0.2 -Current Size (cm) - Depth 0.1 -Total Square Cm 0.06 -Photo Taken No -Exudate Amt None Present -Granulation Amt Small (1-33%) -Granulation Quality [place] -Necrosis Amt Small (1-33%) -Necrotic Tissue Type Adherent Slough -Structure Exposed N/A -Texture (Leena-wound Skin Appearance) Scarring -Moisture (Leena-wound Skin Appearance Dry/Scaly ) -Color (Leena-wound Skin Appearance) Hemosiderin Staining -Temperature (Leena-wound Skin No Abnormality Appearance) (Pt Warm) -Tenderness on Palpation (Leena-wound No Skin Appearance) -Ulcer Cleansing Rinsed/ Irrigated with Saline -Foul Odor after Cleansing No -Anesthetic Used 5% Lidocaine Gel #2 LATERAL RLE - INFERIOR -Current Size (cm) - Length 0 -Current Size (cm) - Width 0 -Current Size (cm) - Depth 0 -Total Square Cm 0 -Photo Taken Yes -Exudate Amt None Present -Wound Margin Flat & Intact -Granulation Amt Small (1-33%) -Granulation Quality [place] -Necrosis Amt None Present (0 %) -Structure Exposed N/A -Texture (Leena-wound Skin Appearance) Scarring -Moisture (Leena-wound Skin Appearance Dry/Scaly ) -Color (Leena-wound Skin Appearance) Hemosiderin Staining -Temperature (Leena-wound Skin No Abnormality Appearance) (Pt Warm) -Tenderness on Palpation (Leena-wound No Skin Appearance) -Ulcer Cleansing Rinsed/ Irrigated with Saline -Foul Odor after Cleansing No #1 MEDIAL RLE -Current Size (cm) - Length 0 -Current Size (cm) - Width 0 -Current Size (cm) - Depth 0 -Total Square Cm 0 -Photo Taken Yes -Exudate Amt None Present -Wound Margin Flat & Intact -Granulation Amt Small (1-33%) -Granulation Quality [place] -Necrosis Amt None Present (0 %) -Structure Exposed N/A -Texture (Leena-wound Skin Appearance) Scarring -Moisture (Leena-wound Skin Appearance Dry/Scaly ) -Color (Leena-wound Skin Appearance) Hemosiderin Staining -Temperature (Leena-wound Skin No Abnormality Appearance) (Pt Warm) -Tenderness on Palpation (Leena-wound No Skin Appearance) -Ulcer Cleansing Rinsed/ Irrigated with Saline -Foul Odor after Cleansing No [Edema Assessment] -Point of measurement (cm from the 34.5 medial instep) -Point of Measurement (cm from the 21 medial instep) WC - Nurse 2 - General Ulcer CM Notes Start: 06/18/19 13:14 Freq: Status: Active Protocol: Activity Type Activity Date Activity User E-Sign Co-Sign Detail Recorded Client Recorded Date Recorded By Document 06/18/19 14:12 DV [id number] 06/18/19 14:31 DV 06/18/19 14:12 Wound Center Nurse 2 [Procedure/Treatment] #4- RFA SKIN TEAR CLUSTER -Time 14:13 -Correct Patient Yes -Correct Side, Site, Position Yes -Correct Procedure No -Procedure Performed No -Wound/Ulcer Outcome Not Healed #3- LATERAL RLE - SUPERIOR -Time 14:13 -Correct Patient Yes -Correct Side, Site, Position Yes -Correct Procedure Yes -Procedure Performed Yes -Type of Procedure Debridement -Clinical Debridement Subcutaneous -Post Debridement Size (cm) - Length 0.4 -Post Debridement Size (cm) - Width 0.5 -Post Debridement Size (cm) - Depth 0.1 -Total Square Cm 0.20 -Wound/Ulcer Outcome Not Healed -Ulcer Cleansing Rinsed/ Irrigated with Saline -Foul Odor after Cleansing No -Bioengineered Tissue No -Bleeding Controlled with Pressure -Offloading No -Treatment Response Procedure Tolerated Well #2 LATERAL RLE - INFERIOR -Time 14:17 -Correct Patient Yes -Correct Side, Site, Position Yes -Correct Procedure Yes -Procedure Performed Yes -Type of Procedure Debridement -Clinical Debridement Subcutaneous -Post Debridement Size (cm) - Length 3.3 -Post Debridement Size (cm) - Width 1.7 -Post Debridement Size (cm) - Depth 0.1 -Total Square Cm 5.61 -Wound/Ulcer Outcome Not Healed -Ulcer Cleansing Rinsed/ Irrigated with Saline -Foul Odor after Cleansing No -Bioengineered Tissue No -Bleeding Controlled with Pressure -Offloading No -Treatment Response Procedure Tolerated Well #1 MEDIAL RLE -Time 14:14 -Correct Patient Yes -Correct Side, Site, Position Yes -Correct Procedure Yes -Procedure Performed Yes -Type of Procedure Debridement -Clinical Debridement Subcutaneous -Post Debridement Size (cm) - Length 2.1 -Post Debridement Size (cm) - Width 2.4 -Post Debridement Size (cm) - Depth 0.2 -Total Square Cm 5.04 -Wound/Ulcer Outcome Not Healed -Ulcer Cleansing Rinsed/ Irrigated with Saline -Foul Odor after Cleansing No -Bioengineered Tissue No -Bleeding Controlled with Pressure -Offloading No -Treatment Response Procedure Tolerated Well [See Physician Procedure note for Specifics] Musculoskeletal: Tenderness - Tenderness to palpation/manipulation of ulcers of RLE and generalized tenderness to palpation of bilateral lower extremities. Psych/Mental Status: Normal Affect, Appropriate Debridement Note Post-Debridement Measurements/Treatment WC - Nurse 2 - General Ulcer CM Notes Start: 06/18/19 13:14 Freq: Status: Active Protocol: Activity Type Activity Date Activity User E-Sign Co-Sign Detail Recorded Client Recorded Date Recorded By Document 06/18/19 14:12 DV [id number] 06/18/19 14:31 DV 06/18/19 14:12 Wound Center Nurse 2 #4- RFA SKIN TEAR CLUSTER -Time 14:13 -Correct Patient Yes -Correct Side, Site, Position Yes -Correct Procedure No -Procedure Performed No -Wound/Ulcer Outcome Not Healed #3- LATERAL RLE - SUPERIOR -Time 14:13 -Correct Patient Yes -Correct Side, Site, Position Yes -Correct Procedure Yes -Procedure Performed Yes -Type of Procedure Debridement -Clinical Debridement Subcutaneous -Post Debridement Size (cm) - Length 0.4 -Post Debridement Size (cm) - Width 0.5 -Post Debridement Size (cm) - Depth 0.1 -Total Square Cm 0.20 -Wound/Ulcer Outcome Not Healed -Ulcer Cleansing Rinsed/ Irrigated with Saline -Foul Odor after Cleansing No -Bioengineered Tissue No -Bleeding Controlled with Pressure -Offloading No -Treatment Response Procedure Tolerated Well #2 LATERAL RLE - INFERIOR -Time 14:17 -Correct Patient Yes -Correct Side, Site, Position Yes -Correct Procedure Yes -Procedure Performed Yes -Type of Procedure Debridement -Clinical Debridement Subcutaneous -Post Debridement Size (cm) - Length 3.3 -Post Debridement Size (cm) - Width 1.7 -Post Debridement Size (cm) - Depth 0.1 -Total Square Cm 5.61 -Wound/Ulcer Outcome Not Healed -Ulcer Cleansing Rinsed/ Irrigated with Saline -Foul Odor after Cleansing No -Bioengineered Tissue No -Bleeding Controlled with Pressure -Offloading No -Treatment Response Procedure Tolerated Well #1 MEDIAL RLE -Time 14:14 -Correct Patient Yes -Correct Side, Site, Position Yes -Correct Procedure Yes -Procedure Performed Yes -Type of Procedure Debridement -Clinical Debridement Subcutaneous -Post Debridement Size (cm) - Length 2.1 -Post Debridement Size (cm) - Width 2.4 -Post Debridement Size (cm) - Depth 0.2 -Total Square Cm 5.04 -Wound/Ulcer Outcome Not Healed -Ulcer Cleansing Rinsed/ Irrigated with Saline -Foul Odor after Cleansing No -Bioengineered Tissue No -Bleeding Controlled with Pressure -Offloading No -Treatment Response Procedure Tolerated Well Wound debrided: Medial RLE cluster Laterality: Right Type of Debridement: Excisional debridement Anesthesia Used: 5% Lidocaine Gel Depth: in the subcutaneous layer Percentage of wound debrided: 100 Instrument Used: 3mm curette Tissue Removed: Scabbing, slough and devitalized tissue Severity: Fat Layer Exposed Amount of bleeding with debridement: Mild Bleeding Controlled with: Pressure Patient tolerated procedure well - Additional Wound Wound debrided: Superior lateral RLE Laterality: Right Type of Debridement: Excisional debridement Anesthesia Used: 5% Lidocaine Gel Depth: in the subcutaneous layer Percentage of wound debrided: 100 Instrument Used: 3mm curette Tissue Removed: Slough and devitalized tissue Severity: Fat Layer Exposed Amount of bleeding with debridement: Mild Bleeding Controlled with: Pressure Patient tolerated procedure: Patient tolerated procedure well - Additional Wound Wound debrided: Inferior lateral RLE cluster Laterality: Right Type of Debridement: Excisional debridement Anesthesia Used: 5% Lidocaine Gel Depth: in the subcutaneous layer Percentage of wound debrided: 100 Instrument Used: 5mm curette Tissue Removed: Scabbing, slough and devitalized tissue Severity: Fat Layer Exposed Amount of bleeding with debridement: Mild Bleeding Controlled with: Pressure Patient tolerated procedure: Patient tolerated procedure well Assessment/Plan Active Problems Venous stasis ulcer of right lower leg with edema of right lower leg (Chronic) Peripheral vascular disease (Chronic) Bilateral lower extremity edema (Chronic) Chronic stasis dermatitis (Chronic) Ulcer of right lower extremity with fat layer exposed (Chronic) Skin tear of right forearm without complication (Acute) Assessment: 1. Venous stasis ulcers of right lower extremity. 2. Skin tear of right forearm. 3. First-degree burn of back-- resolved. 4. Bilateral lower extremity edema. 5. Peripheral vascular disease. 6. Chronic stasis dermatitis. 7. Cellulitis-- resolved. 8. T2DM. 9. A. fib. 10. Long-term current use of anticoagulants. 11. Hypertension. 12. Hypothyroidism. 13. Hyperlipidemia Plan: Debridement performed today in clinic as annotated above. Hydrogel and Adaptic applied to RLE ulcers, covered with gauze and secured with tape. Light single-layer Tubigrip applied to right lower extremity. Given the duration of the wound and failure of the wound to respond to standard wound care, we will apply for advanced skin substitutes. Skin tear of right forearm covered with Adaptic and gauze. At home wound-care instructions: Change hydrogel and Adaptic dressings daily to ulcers of right lower extremity. Cover with gauze and apply single-layer Tubigrip. Cover right forearm skin tears with Adaptic and gauze. Keep right forearm padded and wrapped for protection. May remove dressings to shower. No soaking or submerging of wounds. Apply triamcinolone 0.5% ointment 2-3x/ day to the dry, scaly skin of right foot and ankle, but do not place on any open wounds/ulcers. Compression: Single-layer Tubigrip. Will await results of ABIs before increasing compression-- ABIs scheduled for 06/20/2019. Off-loading: Keep legs elevated at or above waist level when seated. Avoid prolonged standing, or dangling of the legs. Diet: Patient encouraged to increase protein and vitamin C intake while taking caution to avoid high carbohydrate and/or sugar intake. Labs/cultures/imaging: Cultures collected from right quinteros ulcer were positive only for rare staph epidermidis, which does not warrant treatment. Cultures collected at [facility] were negative. No further antibiotics prescribed. Labs and venous study from [facility] reviewed. Would still like patient to complete venous and arterial studies which were ordered here at [facility]?scheduled for 06/20/2019. Follow-up: Return to clinic in 1 week for re-evaluation. Return sooner or report to the emergency room should symptoms worsen, or new symptoms arise. Keep scheduled follow-up with your primary care doctor, Dr. Humphries, for hospital follow-up and evaluation. Note: [employer] speech recognition research assoc software was used to create portions of this document. Sound-alike and misspelled words, as well as other research assoc errors may be contained in the documentation. Code Visit 111xxx-113xx: 50074 Lachelle subq tissue 20 sq cm/<
--- NOTE | 2019-06-20 12:23 | VDLE_ITS ---
Reason For Study: Bilateral lower extremity edema RIGHT LEFT CFV is compressible, spontaneous, phasic, CFV is compressible, spontaneous, phasic, competent and demonstrates normal competent, and demonstrates normal augmentation. augmentation. FV is compressible, spontaneous, phasic, FV is compressible, spontaneous, phasic, competent and demonstrates normal competent and demonstrates normal augmentation. augmentation. POP V is compressible, spontaneous, phasic, POP V is compressible, spontaneous, phasic, competent and demonstrates normal competent and demonstrates normal augmentation. augmentation. T/P Trunk is compressible. T/P Trunk is compressible. PTV is compressible. PTV is compressible. RT PerV is compressible. LT PerV is compressible. SFJ is competent and measures 0.87 x 0.90 cm. SFJ is INCOMPETENT and measures 0.87 x 0.87 GSV proximal thigh measures 0.60 x 0.62 cm. cm. GSV above knee is INCOMPETENT for greater GSV proximal thigh measures 0.60 x 0.72 cm. than 0.5 seconds. GSV at knee measures 0.84 x 0.92 cm. GSV at knee measures 0.19 x 0.20 cm. GSV INCOMPETENT throughout for greater than GSV below knee is competent. 0.5 seconds. SSV at junction is competent and measures SSV at junction is competent and measures 0.45 x 0.50 cm. 0.28 x 0.26 cm. Procedure Exam performed in department. Abnormal waveforms noted within venous system, pt has tremors. A preliminary report was called and/or faxed to . Interpretation Summary Deep veins of the lower extremities are bilaterally patent and compressible segmentally. There is no evidence of deep vein thrombosis on either side. Valvular competence appears intact within the proximal deep venous systems bilaterally. The great saphenous veins appear bilaterally patent and compressible segmentally. The right sapheno-femoral junction is competent . The left sapheno-femoral junction is incompetent . The right great saphenous vein appears incompetent above the knee. The right great saphenous vein appears competent below the knee. The left great saphenous vein appears segmentally incompetent. Small saphenous veins are patent and competent bilaterally. Ordering Physician: Piper Suarez Referring Physician: Brittanie Humphries Performed By: Emely Ayon RVT
--- NOTE | 2019-06-20 12:23 | ART_ITS ---
Reason For Study: PVD Procedure A bilateral lower extremity continuous wave Doppler with analog waveform analysis,segmental pressures,and ankle brachial indexes without exercise. Left Segmental Pressures Left brachial= 115mmHg. Left posterior tibial artery = >254mmHg. Left dorsalis pedis artery = 125mmHg. Left digit = 73 mmHg. The left dorsalis pedis waveforms are triphasic. The left posterior tibial artery waveforms are triphasic. Right Segmental Pressures Right brachial= 103mmHg. Right posterior tibial artery = >254mmHg. Right dorsalis pedis artery = 147mmHg. Right digit = 87 mmHg. The right dorsalis pedis waveforms are triphasic. The right posterior tibial artery waveforms are triphasic. Indices The right ankle brachial index by the dorsalis pedis is 1.28. The right ankle brachial index by the posterior tibial artery is NC. The right digital-brachial index is 0.76. The left ankle brachial index by the dorsalis pedis is 1.09. The left ankle brachial index by the posterior tibial artery is NC. The left digital-brachial index is 0.63. Interpretation Summary Triphasic Doppler waveforms are noted at ankle level bilaterally. Pulse-volume recording waveform amplitudes are slightly diminished at digital level on the right, but otherwise normal bilaterally. Resting ankle-brachial indices are normal bilaterally. The right digital-brachial index is normal. The left digital-brachial index is mildly diminished. Arterial flow appears normal at ankle level bilaterally, as well as at digital level on the right. There is evidence of milld, distal, small-vessel arterial occlusive disease at digital level on the left. Ordering Physician: Piper Suarez Referring Physician: Brittanie Humphries Performed By: Emely Ayon RVT
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
[2019-06-25 13:57] VITALS: BP 117/61; PULSE 81; RESP 18; TEMP 37.2; BMI 29.2
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
[2019-07-02 13:13] VITALS: BP 123/61; PULSE 87; RESP 16; TEMP 37.3; BMI 29.2
--- NOTE | 2019-07-02 14:20 | PCM.WC.PN ---
(1) Venous stasis ulcer of right lower leg with edema of right lower leg Status: Chronic Current Visit: Yes Code(s): I83.019 - Varicose veins of right lower extremity with ulcer of unspecified site; I83.891 - Varicose veins of right lower extremity with other complications; L97.919 - Non-pressure chronic ulcer of unspecified part of right lower leg with unspecified severity; R60.9 - Edema, unspecified (2) Ulcer of right lower extremity with fat layer exposed Status: Chronic Current Visit: Yes Code(s): L97.912 - Non-pressure chronic ulcer of unspecified part of right lower leg with fat layer exposed (3) Venous insufficiency Status: Chronic Current Visit: Yes Code(s): I87.2 - Venous insufficiency (chronic) (peripheral) (4) Skin tear of right forearm without complication Status: Resolved Current Visit: Yes Qualifiers: Encounter type: subsequent encounter Qualified Code(s): S51.811D - Laceration without foreign body of right forearm, subsequent encounter Code(s): S51.811A - Laceration without foreign body of right forearm, initial encounter (5) Bilateral lower extremity edema Status: Chronic Current Visit: Yes Code(s): R60.0 - Localized edema (6) Chronic stasis dermatitis Status: Chronic Current Visit: Yes Code(s): I87.2 - Venous insufficiency (chronic) (peripheral) (7) Peripheral vascular disease Status: Chronic Current Visit: Yes Code(s): I73.9 - Peripheral vascular disease, unspecified (8) T2DM (type 2 diabetes mellitus) Status: Chronic Current Visit: No Code(s): E11.9 - Type 2 diabetes mellitus without complications (9) Atopic dermatitis Status: Chronic Current Visit: Yes Code(s): L20.9 - Atopic dermatitis, unspecified Type of Wound Date of Service: 07/02/19 Chief Complaint: Right leg ulcers; burn on back (resolved); skin tear of right forearm History of Wound: Patient is a pleasant 78-year-old female who presented to the wound healing center on 05/21/2019 for an initial evaluation of right lower extremity ulcers. The ulcers of the right lower extremity occurred about 2 months prior. She was seen by her primary care provider, Dr. Brittanie Humphries, on 04/30/2019. At that time, patient was diagnosed with cellulitis and given a 10-day course of doxycycline and topical silvadene cream. Cellulitis appears to have resolved with use of antibiotics, but ulcerations persist. Patient's has been applying Silvadene to the ulcers, and covering with gauze daily. He reports a large amount of clear, nonpurulent, odorless drainage from the wound. The patient otherwise denies any fever, chills, nausea, vomiting, or diarrhea. Denies any signs of infection, including increasing pain, redness, swelling, or purulent/foul-smelling drainage from affected area. Patient has chronic swelling of bilateral lower extremities. She has a history of peripheral vascular disease with vascular interventions about 25 to 30 years ago in her left leg. She recalls having vascular studies and ABIs completed several years ago. Patient also has chronic venous stasis dermatitis, bilateral varicosities of lower extremities, type 2 diabetes mellitus, hypertension, hyperlipidemia, A. fib, and long-term use of anticoagulants. See [facility] for additional information. In mid-May 2019, patient was admitted to [facility] for a cardioversion and suffered 1st degree loera to her back as a result. She was given Silvadene cream to apply to loera, which she states helped with pain. The burn resolved within 1 week and patient was instructed to stop Silvadene cream. She has an upcoming follow-up appt with her PCP for further monitoring. On 06/11/2019, patient reports she was walking out of the bathroom and hit her right forearm on the wooden door, creating a skin tear. She reports a large amount of bleeding, which eventually subsided with compression. She had been keeping the skin tear covered with gauze dressing until evaluated at the [facility]. She was then switched to Adaptic and gauze dressings. Progress of Wound: Skin tear of right forearm is healed. Ulcers of right lower extremity have improved in size and appearance since last week, after changing patient to [facility]. Wound beds appear less dry, with less slough and devitalized tissue present. The red, itchy rash on her right lower extremity has returned, and the dry skin of her right lower extremity has worsened since stopping triamcinolone ointment. The patient denies any fever, chills, nausea, vomiting, or diarrhea. Denies any increasing pain, redness, swelling, or purulent/foul-smelling drainage from affected areas. Patient has completed vascular studies, with the following pertinent findings: Venous Doppler studies noted left saphenofemoral junction incompetent, left great saphenous vein segmentally incompetent, right great saphenous vein incompetent above the knee. Arterial studies noted triphasic waveforms at ankle level bilaterally; waveform amplitudes slightly diminished at digital level on the right, but otherwise normal bilaterally; resting ABIs normal bilaterally: Left EMBER 1.09 (DP), NC (PT), right EMBER 1.28 (DP), NC (PT). Right DBI is normal, left DBI is mildly diminished; evidence of mild, distal, small vessel arterial occlusive disease at digital level on the left. - Physical Exam Vital Signs Temp Pulse Resp BP 99.2 F H 87 16 123/61 H 07/02/19 13:13 07/02/19 13:13 07/02/19 13:13 07/02/19 13:13 General: Alert, Cooperative, No apparent distress HEENT: Atraumatic, EOMI, Normocephalic Oral: Moist Mucosa Neck: Supple, Trachea Midline Lungs: Normal air movement Cardiovascular: Irregular Rate Extremities: No clubbing, No cyanosis, Capillary Refill Less than 3 Seconds, Diminished Peripheral Pulses, Edema - Trace pitting edema of bilateral lower extremities, several varicosities present in bilateral lower extremities., Tenderness - Tenderness to palpation of bilateral lower extremities Skin: No rashes - Dry, erythematous, eczematous appearing rash and excoriation of bilateral lower extremities present., Ulcer/ Wound - RLE ulcers with moderate amounts of slough and biofilm present in wound beds, but less and dry than last week. Leena-ulcer erythema resolved. No purulent or foul-smelling drainage. No warmth to palpation. No tunneling or undermining of ulcers, no probing to bone. Skin tear of right forearm remains healed. Wound Measurements and Assessment WC - Nurse 1 - General Ulcer Measurement Start: 06/18/19 13:14 Freq: Status: Active Protocol: Activity Type Activity Date Activity User E-Sign Co-Sign Detail Recorded Client Recorded Date Recorded By Document 07/02/19 13:13 GENARO [id number] 07/02/19 13:21 GENARO 07/02/19 13:13 Wound Center Nurse 1 [Ulcer Assessment] #5- R LAT LE -Combined with other wound No -Current Size (cm) - Length 0.1 -Current Size (cm) - Width 0.1 -Current Size (cm) - Depth 0.1 -Total Square Cm 0.01 -Photo Taken No -Epithelialization Large 67-100% -Tunneling No -Undermining/Tunneling No -Circular Undermining No -Exudate Amt None Present -Wound Margin Flat & Intact -Granulation Amt None Present (0 %) -Slough/Fibrin No -Structure Exposed N/A -Texture (Leena-wound Skin Appearance) Assessed, Localized Edema -Moisture (Leena-wound Skin Appearance Assessed,Dry/ ) Scaly -Color (Leena-wound Skin Appearance) Assessed, Hemosiderin Staining -Temperature (Leena-wound Skin No Abnormality Appearance) (Pt Warm) -Tenderness on Palpation (Leena-wound No Skin Appearance) -Ulcer Cleansing Rinsed/ Irrigated with Saline -Foul Odor after Cleansing No -Anesthetic Used 4% Lidocaine Solution #3- R QUINTEROS SUPERIOR -Combined with other wound No -Current Size (cm) - Length 1.4 -Current Size (cm) - Width 1.3 -Current Size (cm) - Depth 0.2 -Total Square Cm 1.82 -Photo Taken No -Epithelialization Small 1-33% -Tunneling No -Undermining/Tunneling No -Circular Undermining No -Exudate Amt Small -Exudate Type Serosanguineous -Wound Margin Flat & Intact -Granulation Amt None Present (0 %) -Slough/Fibrin Yes -Necrosis Amt Large (67-100%) -Necrotic Tissue Type Adherent Slough -Structure Exposed N/A -Texture (Leena-wound Skin Appearance) Assessed, Localized Edema -Moisture (Leena-wound Skin Appearance Assessed,Dry/ ) Scaly -Color (Leena-wound Skin Appearance) Assessed -Temperature (Leena-wound Skin No Abnormality Appearance) (Pt Warm) -Tenderness on Palpation (Leena-wound No Skin Appearance) -Ulcer Cleansing Rinsed/ Irrigated with Saline -Foul Odor after Cleansing No -Anesthetic Used 4% Lidocaine Solution #2 R QUINTEROS- INFERIOR -Combined with other wound No -Current Size (cm) - Length 1.5 -Current Size (cm) - Width 0.9 -Current Size (cm) - Depth 0.1 -Total Square Cm 1.35 -Photo Taken No -Epithelialization Small 1-33% -Tunneling No -Undermining/Tunneling No -Circular Undermining No -Exudate Amt None Present -Wound Margin Flat & Intact -Granulation Amt None Present (0 %) -Slough/Fibrin Yes -Necrosis Amt Large (67-100%) -Necrotic Tissue Type Adherent Slough -Structure Exposed N/A -Texture (Leena-wound Skin Appearance) Assessed, Localized Edema -Moisture (Leena-wound Skin Appearance Assessed,Dry/ ) Scaly -Color (Leena-wound Skin Appearance) Assessed, Hemosiderin Staining -Temperature (Leena-wound Skin No Abnormality Appearance) (Pt Warm) -Tenderness on Palpation (Leena-wound No Skin Appearance) -Ulcer Cleansing Rinsed/ Irrigated with Saline -Foul Odor after Cleansing No -Anesthetic Used 4% Lidocaine Solution [Edema Assessment] -Lower Limb Edema Present Yes -Right Calf (cm) 34 -Right Ankle (cm) 21.4 WC - Nurse 2 - General Ulcer CM Notes Start: 06/18/19 13:14 Freq: Status: Active Protocol: Activity Type Activity Date Activity User E-Sign Co-Sign Detail Recorded Client Recorded Date Recorded By Document 07/02/19 13:39 [id number] 07/02/19 13:47 GENARO 07/02/19 13:39 Wound Center Nurse 2 [Procedure/Treatment] #5- R LAT LE -Time 13:40 -Correct Patient Yes -Correct Side, Site, Position Yes -Correct Procedure Yes -Procedure Performed Yes -Type of Procedure Debridement -Clinical Debridement Subcutaneous -Post Debridement Size (cm) - Length 0.3 -Post Debridement Size (cm) - Width 0.3 -Post Debridement Size (cm) - Depth 0.1 -Total Square Cm 0.09 -Wound/Ulcer Outcome Not Healed -Ulcer Cleansing Rinsed/ Irrigated with Saline -Foul Odor after Cleansing No -Bioengineered Tissue No -Bleeding Controlled with Pressure -Offloading No -Treatment Response Procedure Tolerated Well #3- R QUINTEROS SUPERIOR -Time 13:40 -Correct Patient Yes -Correct Side, Site, Position Yes -Correct Procedure Yes -Procedure Performed Yes -Type of Procedure Debridement -Clinical Debridement Subcutaneous -Post Debridement Size (cm) - Length 2.0 -Post Debridement Size (cm) - Width 2.0 -Post Debridement Size (cm) - Depth 0.1 -Total Square Cm 4.00 -Wound/Ulcer Outcome Not Healed -Ulcer Cleansing Rinsed/ Irrigated with Saline -Foul Odor after Cleansing No -Bioengineered Tissue No -Bleeding Controlled with Pressure -Offloading No -Treatment Response Procedure Tolerated Well #2 R QUINTEROS- INFERIOR -Time 13:40 -Correct Patient Yes -Correct Side, Site, Position Yes -Correct Procedure Yes -Procedure Performed Yes -Type of Procedure Debridement -Clinical Debridement Subcutaneous -Post Debridement Size (cm) - Length 3.4 -Post Debridement Size (cm) - Width 1.2 -Post Debridement Size (cm) - Depth 0.1 -Total Square Cm 4.08 -Wound/Ulcer Outcome Not Healed -Ulcer Cleansing Rinsed/ Irrigated with Saline -Foul Odor after Cleansing No -Bioengineered Tissue No -Bleeding Controlled with Pressure -Offloading No -Treatment Response Procedure Tolerated Well [See Physician Procedure note for Specifics] Pain Scale: 0-10 Numeric [Pain] -Is Patient Pain Free? Yes Neurological: - - Tremor of upper extremities Psych/Mental Status: Normal Affect, Appropriate Debridement Note Post-Debridement Measurements/Treatment WC - Nurse 2 - General Ulcer CM Notes Start: 06/18/19 13:14 Freq: Status: Active Protocol: Activity Type Activity Date Activity User E-Sign Co-Sign Detail Recorded Client Recorded Date Recorded By Document 06/18/19 14:12 DV [id number] 06/18/19 14:31 DV Document 06/25/19 14:25 [id number] 06/25/19 14:47 DV Document 07/02/19 13:39 [id number] 07/02/19 13:47 06/18/19 06/25/19 07/02/19 14:12 14:25 13:39 Wound Center Nurse 2 #5- R LAT LE -Time 14:27 13:40 -Correct Patient Yes Yes -Correct Side, Site, Position Yes Yes -Correct Procedure Yes Yes -Procedure Performed Yes Yes -Type of Procedure Debridement Debridement -Clinical Debridement Subcutaneous Subcutaneous -Post Debridement Size (cm) - Length 0.3 0.3 -Post Debridement Size (cm) - Width 0.4 0.3 -Post Debridement Size (cm) - Depth 0.1 0.1 -Total Square Cm 0.12 0.09 -Wound/Ulcer Outcome Not Healed Not Healed -Ulcer Cleansing Rinsed/ Rinsed/ Irrigated with Irrigated with Saline Saline -Foul Odor after Cleansing No No -Bioengineered Tissue No No -Bleeding Controlled with Pressure Pressure -Offloading No No -Treatment Response Procedure Procedure Tolerated Well Tolerated Well #4- RFA SKIN TEAR CLUSTER -Time 14:13 -Correct Patient Yes -Correct Side, Site, Position Yes -Correct Procedure No -Procedure Performed No -Wound/Ulcer Outcome Not Healed #3- R QUINTEROS SUPERIOR -Time 14:13 14:27 13:40 -Correct Patient Yes Yes Yes -Correct Side, Site, Position Yes Yes Yes -Correct Procedure Yes Yes Yes -Procedure Performed Yes Yes Yes -Type of Procedure Debridement Debridement Debridement -Clinical Debridement Subcutaneous Subcutaneous Subcutaneous -Post Debridement Size (cm) - Length 0.4 2.2 2.0 -Post Debridement Size (cm) - Width 0.5 2.2 2.0 -Post Debridement Size (cm) - Depth 0.1 0.2 0.1 -Total Square Cm 0.20 4.84 4.00 -Wound/Ulcer Outcome Not Healed Not Healed Not Healed -Ulcer Cleansing Rinsed/ Rinsed/ Rinsed/ Irrigated with Irrigated with Irrigated with Saline Saline Saline -Foul Odor after Cleansing No No No -Bioengineered Tissue No No No -Bleeding Controlled with Pressure Pressure Pressure -Offloading No No No -Treatment Response Procedure Procedure Procedure Tolerated Well Tolerated Well Tolerated Well #2 R QUINTEROS- INFERIOR -Time 14:17 14:28 13:40 -Correct Patient Yes Yes Yes -Correct Side, Site, Position Yes Yes Yes -Correct Procedure Yes Yes Yes -Procedure Performed Yes Yes Yes -Type of Procedure Debridement Debridement Debridement -Clinical Debridement Subcutaneous Subcutaneous Subcutaneous -Post Debridement Size (cm) - Length 3.3 3.2 3.4 -Post Debridement Size (cm) - Width 1.7 2.0 1.2 -Post Debridement Size (cm) - Depth 0.1 0.1 0.1 -Total Square Cm 5.61 6.40 4.08 -Wound/Ulcer Outcome Not Healed Not Healed Not Healed -Ulcer Cleansing Rinsed/ Rinsed/ Rinsed/ Irrigated with Irrigated with Irrigated with Saline Saline Saline -Foul Odor after Cleansing No No No -Bioengineered Tissue No No No -Bleeding Controlled with Pressure Pressure Pressure -Offloading No No No -Treatment Response Procedure Procedure Procedure Tolerated Well Tolerated Well Tolerated Well #1 MEDIAL RLE -Time 14:14 -Correct Patient Yes -Correct Side, Site, Position Yes -Correct Procedure Yes -Procedure Performed Yes -Type of Procedure Debridement -Clinical Debridement Subcutaneous -Post Debridement Size (cm) - Length 2.1 -Post Debridement Size (cm) - Width 2.4 -Post Debridement Size (cm) - Depth 0.2 -Total Square Cm 5.04 -Wound/Ulcer Outcome Not Healed -Ulcer Cleansing Rinsed/ Irrigated with Saline -Foul Odor after Cleansing No -Bioengineered Tissue No -Bleeding Controlled with Pressure -Offloading No -Treatment Response Procedure Tolerated Well Pain Scale: 0-10 Numeric Is Patient Pain Free? Yes Yes Wound debrided: Right lateral lower extremity Laterality: Right Anesthesia Used: 5% Lidocaine Gel Depth: in the subcutaneous layer Percentage of wound debrided: 100 Instrument Used: 3mm curette Tissue Removed: Slough and devitalized tissue Severity: Fat Layer Exposed Amount of bleeding with debridement: Mild Bleeding Controlled with: Pressure Patient tolerated procedure well - Additional Wound Wound debrided: Right superior quinteros cluster Laterality: Right Type of Debridement: Excisional debridement Depth: in the subcutaneous layer Percentage of wound debrided: 100 Instrument Used: 5mm curette Tissue Removed: Slough and devitalized tissue Severity: Fat Layer Exposed Amount of bleeding with debridement: Mild Bleeding Controlled with: Pressure Patient tolerated procedure: Patient tolerated procedure well - Additional Wound Wound debrided: Right inferior quinteros cluster Laterality: Right Type of Debridement: Excisional debridement Anesthesia Used: 5% Lidocaine Gel Depth: in the subcutaneous layer Percentage of wound debrided: 100 Instrument Used: 5mm curette Tissue Removed: Slough and devitalized tissue Severity: Fat Layer Exposed Amount of bleeding with debridement: Mild Bleeding Controlled with: Pressure Patient tolerated procedure: Patient tolerated procedure well Assessment/Plan Active Problems Venous stasis ulcer of right lower leg with edema of right lower leg (Chronic) Peripheral vascular disease (Chronic) Bilateral lower extremity edema (Chronic) Chronic stasis dermatitis (Chronic) Ulcer of right lower extremity with fat layer exposed (Chronic) Venous insufficiency (Chronic) Atopic dermatitis (Chronic) Assessment: 1. Venous stasis ulcers of right lower extremity. 2. Skin tear of right forearm--healed. 3. First-degree burn of back-- resolved. 4. Bilateral lower extremity edema. 5. Peripheral vascular disease, venous insufficiency, chronic. 6. Chronic stasis dermatitis. 7. Atopic dermatitis, chronic. 8. Cellulitis-- resolved. 9. T2DM. 10. A. fib. 11. Long-term current use of anticoagulants. 12. Hypertension. 13. Hypothyroidism. 14. Hyperlipidemia Plan: Debridement performed today in clinic as annotated above. Hydrogel applied to ulcers of RLE. Double layer Tubigrip applied to right lower extremity--patient has tolerated these well in the last week. Patient instructed to change dressing and apply Medihoney once she returns home, since she does not have Medihoney with her today. Given the duration of the wound and failure of the wound to respond to standard wound care, we have applied for advanced skin substitutes--patient was denied for Puraply and [place]; approvable for additional advanced skin substitutes is pending. At home wound-care instructions: Change Medihoney and Mepilex dressings every 3 days to ulcers of right lower extremity. Continue to wear double layer Tubigrip's. If tolerated, we may increase to 3M wraps in the future. Importance of compression therapy reiterated with patient. May remove dressings to shower. No soaking or submerging of wounds. Resume use of triamcinolone 0.5% ointment 2-3 times daily as instructed??new Rx given. Compression: Double?layer Tubigrips. Off-loading: Keep legs elevated at or above waist level when seated. Avoid prolonged standing, or dangling of the legs. Diet: Patient encouraged to increase protein and vitamin C intake while taking caution to avoid high carbohydrate and/or sugar intake. Labs/cultures/imaging: Cultures collected from right quinteros ulcer were positive only for rare staph epidermidis, which does not warrant treatment. Cultures collected at [facility] were negative. No further antibiotics prescribed. Labs and venous study from [facility] reviewed. Patient has completed vascular studies at [facility], with the following pertinent findings: Venous Doppler studies noted left saphenofemoral junction incompetent, left great saphenous vein segmentally incompetent, right great saphenous vein incompetent above the knee. Arterial studies noted triphasic waveforms at ankle level bilaterally; waveform amplitudes slightly diminished at digital level on the right, but otherwise normal bilaterally; resting ABIs normal bilaterally: Left EMBER 1.09 (DP), NC (PT), right EMBER 1.28 (DP), NC (PT). Right DBI is normal, left DBI is mildly diminished; evidence of mild, distal, small vessel arterial occlusive disease at digital level on the left. Follow-up: Return to clinic in 1 week for re-evaluation. Return sooner or report to the emergency room should symptoms worsen, or new symptoms arise. Note: [employer] speech recognition catering service manager software was used to create portions of this document. Sound-alike and misspelled words, as well as other catering service manager errors may be contained in the documentation. Code Visit [id number]: [id number] Lachelle subq tissue 20 sq cm/<
[2019-07-09 13:06] VITALS: BP 112/63; PULSE 91; RESP 18; TEMP 36.1; BMI 29.2
--- NOTE | 2019-07-09 17:03 | PN.PCM_ITS ---
(1) Venous stasis ulcer of right lower leg with edema of right lower leg Status: Chronic Current Visit: Yes Code(s): I83.019 - Varicose veins of right lower extremity with ulcer of unspecified site; I83.891 - Varicose veins of right lower extremity with other complications; L97.919 - Non-pressure chronic ulcer of unspecified part of right lower leg with unspecified severity; R60.9 - Edema, unspecified (2) Ulcer of right lower extremity with fat layer exposed Status: Chronic Current Visit: Yes Code(s): L97.912 - Non-pressure chronic ulcer of unspecified part of right lower leg with fat layer exposed (3) Venous insufficiency Status: Chronic Current Visit: Yes Code(s): I87.2 - Venous insufficiency (chronic) (peripheral) (4) Skin tear of right forearm without complication Status: Resolved Current Visit: Yes Qualifiers: Encounter type: subsequent encounter Qualified Code(s): S51.811D - Laceration without foreign body of right forearm, subsequent encounter Code(s): S51.811A - Laceration without foreign body of right forearm, initial encounter (5) Bilateral lower extremity edema Status: Chronic Current Visit: Yes Code(s): R60.0 - Localized edema (6) Chronic stasis dermatitis Status: Chronic Current Visit: Yes Code(s): I87.2 - Venous insufficiency (chronic) (peripheral) (7) Peripheral vascular disease Status: Chronic Current Visit: Yes Code(s): I73.9 - Peripheral vascular disease, unspecified (8) T2DM (type 2 diabetes mellitus) Status: Chronic Current Visit: No Code(s): E11.9 - Type 2 diabetes mellitus without complications (9) Atopic dermatitis Status: Chronic Current Visit: Yes Code(s): L20.9 - Atopic dermatitis, unspecified Type of Wound Date of Service: 07/09/19 Chief Complaint: Right leg ulcers; burn on back (resolved); skin tear of right forearm History of Wound: Patient is a pleasant 78-year-old female who presented to the wound healing center on 05/21/2019 for an initial evaluation of right lower extremity ulcers. The ulcers of the right lower extremity occurred about 2 months prior. She was seen by her primary care provider, Dr. Brittanie Humphries, on 04/30/2019. At that time, patient was diagnosed with cellulitis and given a 10- day course of doxycycline and topical silvadene cream. Cellulitis appears to have resolved with use of antibiotics, but ulcerations persist. Patient's has been applying Silvadene to the ulcers, and covering with gauze daily. He reports a large amount of clear, nonpurulent, odorless drainage from the wound. The patient otherwise denies any fever, chills, nausea, vomiting, or diarrhea. Denies any signs of infection, including increasing pain, redness, swelling, or purulent/foul-smelling drainage from affected area. Patient has chronic swelling of bilateral lower extremities. She has a history of peripheral vascular disease with vascular interventions about 25 to 30 years ago in her left leg. She recalls having vascular studies and ABIs completed several years ago. Patient also has chronic venous stasis dermatitis, bilateral varicosities of lower extremities, type 2 diabetes mellitus, hypertension, hyperlipidemia, A. fib, and long-term use of anticoagulants. See [facility] for additional information. In mid-May 2019, patient was admitted to [facility] for a cardioversion and suffered 1st degree loera to her back as a result. She was given Silvadene cream to apply to loera, which she states helped with pain. The burn resolved within 1 week and patient was instructed to stop Silvadene cream. She has an upcoming follow-up appt with her PCP for further monitoring. On 06/11/2019, patient reports she was walking out of the bathroom and hit her right forearm on the wooden door, creating a skin tear. She reports a large amount of bleeding, which eventually subsided with compression. She had been keeping the skin tear covered with gauze dressing until evaluated at the [facility]. She was then switched to Adaptic and gauze dressings. Progress of Wound: Skin tear of right forearm is healed. Lateral RLE ulcer is healed. Remaining ulcers of right lower extremity have improved in size and appearance with use of Medihoney. Wound beds appear less dry, with less slough and devitalized tissue present. The red, itchy rash on her right lower extremity has improved since restarting the triamcinolone ointment. The patient denies any fever, chills, nausea, vomiting, or diarrhea. Denies any increasing pain, redness, swelling, or purulent/foul-smelling drainage from affected areas. Patient has completed vascular studies, with the following pertinent findings: Venous Doppler studies noted left saphenofemoral junction incompetent, left great saphenous vein segmentally incompetent, right great saphenous vein incompetent above the knee. Arterial studies noted triphasic waveforms at ankle level bilaterally; waveform amplitudes slightly diminished at digital level on the right, but otherwise normal bilaterally; resting ABIs normal bilaterally: Left EMBER 1.09 (DP), NC (PT), right EMBER 1.28 (DP), NC (PT). Right DBI is normal, left DBI is mildly diminished; evidence of mild, distal, small vessel arterial occlusive disease at digital level on the left. - Physical Exam Vital Signs Temp Pulse Resp BP 96.9 F L 91 18 112/63 07/09/19 13:06 07/09/19 13:06 07/09/19 13:06 07/09/19 13:06 General: Alert, Cooperative, No apparent distress HEENT: Atraumatic, EOMI, Normocephalic Oral: Moist Mucosa Neck: Supple, Trachea Midline Lungs: Normal air movement Cardiovascular: Irregular Rate Extremities: No clubbing, No cyanosis, Capillary Refill Less than 3 Seconds, No Calf Tenderness, Diminished Peripheral Pulses, Edema - Trace edema bilateral lower extremities, several varicosities present in BLE, Tenderness - Tenderness to palpation of bilateral lower extremities Skin: Ulcer/ Wound - RLE ulcers with small amounts of slough and biofilm present in wound beds. Leena-ulcer erythema resolved. No purulent or foul-smelling drainage. No warmth to palpation. No tunneling or undermining of ulcers, no probing to bone., Rash Present - Dry, erythematous, eczematous appearing rash and excoriation of bilateral lower extremities has improved. Wound Measurements and Assessment WC - Nurse 1 - General Ulcer Measurement Start: 06/18/19 13:14 Freq: Status: Active Protocol: Activity Type Activity Date Activity User E-Sign Co-Sign Detail Recorded Client Recorded Date Recorded By Document 07/09/19 13:06 DL [id number] 07/09/19 13:21 DL 07/09/19 13:06 Wound Center Nurse 1 [Ulcer Assessment] #5- R LAT LE -Current Size (cm) - Length 0.1 -Current Size (cm) - Width 0.1 -Current Size (cm) - Depth 0.1 -Total Square Cm 0.01 -Photo Taken No -Exudate Amt None Present -Wound Margin Flat & Intact -Granulation Amt Large (67-100%) -Granulation Quality [place] -Necrosis Amt None Present (0 %) -Structure Exposed N/A -Texture (Leena-wound Skin Appearance) Scarring -Moisture (Leena-wound Skin Appearance No Abnormality ) -Color (Leena-wound Skin Appearance) Hemosiderin Staining -Temperature (Leena-wound Skin No Abnormality Appearance) (Pt Warm) -Tenderness on Palpation (Leena-wound No Skin Appearance) -Ulcer Cleansing Wound Cleanser -Anesthetic Used 5% Lidocaine Gel #3- R QUINTEROS SUPERIOR -Current Size (cm) - Length 1 -Current Size (cm) - Width 1.4 -Current Size (cm) - Depth 0.1 -Total Square Cm 1.4 -Photo Taken No -Exudate Amt Small -Exudate Type Serosanguineous -Wound Margin Distinct, Outline Attached -Granulation Amt Small (1-33%) -Granulation Quality [place] -Necrosis Amt Large (67-100%) -Necrotic Tissue Type Adherent Slough -Structure Exposed N/A -Texture (Leena-wound Skin Appearance) Scarring -Moisture (Leena-wound Skin Appearance No Abnormality ) -Color (Leena-wound Skin Appearance) Hemosiderin Staining -Temperature (Leena-wound Skin No Abnormality Appearance) (Pt Warm) -Tenderness on Palpation (Leena-wound No Skin Appearance) -Anesthetic Used 5% Lidocaine Gel #2 R QUINTEROS- INFERIOR -Current Size (cm) - Length 1.3 -Current Size (cm) - Width 0.9 -Current Size (cm) - Depth 0.1 -Total Square Cm 1.17 -Photo Taken No -Exudate Amt None Present -Wound Margin Distinct, Outline Attached -Granulation Amt Small (1-33%) -Granulation Quality [place] -Necrosis Amt Large (67-100%) -Necrotic Tissue Type Adherent Slough -Structure Exposed N/A -Texture (Leena-wound Skin Appearance) Scarring -Moisture (Leena-wound Skin Appearance No Abnormality ) -Color (Leena-wound Skin Appearance) Hemosiderin Staining -Temperature (Leena-wound Skin No Abnormality Appearance) (Pt Warm) -Tenderness on Palpation (Leena-wound No Skin Appearance) -Ulcer Cleansing Wound Cleanser -Foul Odor after Cleansing No -Anesthetic Used 4% Lidocaine Solution [Edema Assessment] -Right Calf (cm) 33 -Right Ankle (cm) 20.5 WC - Nurse 2 - General Ulcer CM Notes Start: 06/18/19 13:14 Freq: Status: Active Protocol: Activity Type Activity Date Activity User E-Sign Co-Sign Detail Recorded Client Recorded Date Recorded By Document 07/09/19 13:45 DV [id number] 07/09/19 14:18 DV 07/09/19 13:45 Wound Center Nurse 2 [Procedure/Treatment] #5- R LAT LE -Time 13:46 -Correct Patient Yes -Correct Side, Site, Position Yes -Correct Procedure No -Procedure Performed No -Post Debridement Size (cm) - Length 0 -Post Debridement Size (cm) - Width 0 -Post Debridement Size (cm) - Depth 0 -Total Square Cm 0 -Wound/Ulcer Outcome Healed- Epithelialized #3- R QUINTEROS SUPERIOR -Time 13:47 -Correct Patient Yes -Correct Side, Site, Position Yes -Correct Procedure Yes -Procedure Performed Yes -Type of Procedure Debridement -Clinical Debridement Subcutaneous -Post Debridement Size (cm) - Length 1.7 -Post Debridement Size (cm) - Width 2.1 -Post Debridement Size (cm) - Depth 0.1 -Total Square Cm 3.57 -Wound/Ulcer Outcome Failed Graft -Ulcer Cleansing Rinsed/ Irrigated with Saline -Foul Odor after Cleansing No -Bioengineered Tissue No -Expiration Date 06/18/19 -Product Lot Number [id number] -Percent Used 50 -Topical Lidocaine (%) 5 -Bleeding Controlled with Pressure -Offloading No -Treatment Response Procedure Tolerated Well #2 R QUINTEROS- INFERIOR -Time 13:47 -Correct Patient Yes -Correct Side, Site, Position Yes -Correct Procedure Yes -Procedure Performed Yes -Type of Procedure Debridement -Clinical Debridement Subcutaneous -Post Debridement Size (cm) - Length 1.4 -Post Debridement Size (cm) - Width 1.2 -Post Debridement Size (cm) - Depth 0.1 -Total Square Cm 1.68 -Wound/Ulcer Outcome Not Healed -Ulcer Cleansing Rinsed/ Irrigated with Saline -Foul Odor after Cleansing No -Bioengineered Tissue No -Treatment Response Procedure Not Tolerated Well [See Physician Procedure note for Specifics] Pain Scale: 0-10 Numeric [Pain] -Is Patient Pain Free? Yes Neurological: - - Tremors upper extremities, chronic Psych/Mental Status: Normal Affect, Appropriate Debridement Note Post-Debridement Measurements/Treatment WC - Nurse 2 - General Ulcer CM Notes Start: 06/18/19 13:14 Freq: Status: Active Protocol: Activity Type Activity Date Activity User E-Sign Co-Sign Detail Recorded Client Recorded Date Recorded By Document 06/18/19 14:12 DV [id number] 06/18/19 14:31 DV Document 06/25/19 14:25 DV [id number] 06/25/19 14:47 DV Document 07/02/19 13:39 JF [id number] 07/02/19 13:47 JF Document 07/09/19 13:45 DV [id number] 07/09/19 14:18 DV 06/18/19 06/25/19 07/02/19 14:12 14:25 13:39 Wound Center Nurse 2 #5- R LAT LE -Time 14:27 13:40 -Correct Patient Yes Yes -Correct Side, Site, Position Yes Yes -Correct Procedure Yes Yes -Procedure Performed Yes Yes -Type of Procedure Debridement Debridement -Clinical Debridement Subcutaneous Subcutaneous -Post Debridement Size (cm) - Length 0.3 0.3 -Post Debridement Size (cm) - Width 0.4 0.3 -Post Debridement Size (cm) - Depth 0.1 0.1 -Total Square Cm 0.12 0.09 -Wound/Ulcer Outcome Not Healed Not Healed -Ulcer Cleansing Rinsed/ Rinsed/ Irrigated with Irrigated with Saline Saline -Foul Odor after Cleansing No No -Bioengineered Tissue No No -Bleeding Controlled with Pressure Pressure -Offloading No No -Treatment Response Procedure Procedure Tolerated Well Tolerated Well #4- RFA SKIN TEAR CLUSTER -Time 14:13 -Correct Patient Yes -Correct Side, Site, Position Yes -Correct Procedure No -Procedure Performed No -Wound/Ulcer Outcome Not Healed #3- R QUINTEROS SUPERIOR -Time 14:13 14:27 13:40 -Correct Patient Yes Yes Yes -Correct Side, Site, Position Yes Yes Yes -Correct Procedure Yes Yes Yes -Procedure Performed Yes Yes Yes -Type of Procedure Debridement Debridement Debridement -Clinical Debridement Subcutaneous Subcutaneous Subcutaneous -Post Debridement Size (cm) - Length 0.4 2.2 2.0 -Post Debridement Size (cm) - Width 0.5 2.2 2.0 -Post Debridement Size (cm) - Depth 0.1 0.2 0.1 -Total Square Cm 0.20 4.84 4.00 -Wound/Ulcer Outcome Not Healed Not Healed Not Healed -Ulcer Cleansing Rinsed/ Rinsed/ Rinsed/ Irrigated with Irrigated with Irrigated with Saline Saline Saline -Foul Odor after Cleansing No No No -Bioengineered Tissue No No No -Expiration Date -Product Lot Number -Percent Used -Topical Lidocaine (%) -Bleeding Controlled with Pressure Pressure Pressure -Offloading No No No -Treatment Response Procedure Procedure Procedure Tolerated Well Tolerated Well Tolerated Well #2 R QUINTEROS- INFERIOR -Time 14:17 14:28 13:40 -Correct Patient Yes Yes Yes -Correct Side, Site, Position Yes Yes Yes -Correct Procedure Yes Yes Yes -Procedure Performed Yes Yes Yes -Type of Procedure Debridement Debridement Debridement -Clinical Debridement Subcutaneous Subcutaneous Subcutaneous -Post Debridement Size (cm) - Length 3.3 3.2 3.4 -Post Debridement Size (cm) - Width 1.7 2.0 1.2 -Post Debridement Size (cm) - Depth 0.1 0.1 0.1 -Total Square Cm 5.61 6.40 4.08 -Wound/Ulcer Outcome Not Healed Not Healed Not Healed -Ulcer Cleansing Rinsed/ Rinsed/ Rinsed/ Irrigated with Irrigated with Irrigated with Saline Saline Saline -Foul Odor after Cleansing No No No -Bioengineered Tissue No No No -Bleeding Controlled with Pressure Pressure Pressure -Offloading No No No -Treatment Response Procedure Procedure Procedure Tolerated Well Tolerated Well Tolerated Well #1 [facility] RLE -Time 14:14 -Correct Patient Yes -Correct Side, Site, Position Yes -Correct Procedure Yes -Procedure Performed Yes -Type of Procedure Debridement -Clinical Debridement Subcutaneous -Post Debridement Size (cm) - Length 2.1 -Post Debridement Size (cm) - Width 2.4 -Post Debridement Size (cm) - Depth 0.2 -Total Square Cm 5.04 -Wound/Ulcer Outcome Not Healed -Ulcer Cleansing Rinsed/ Irrigated with Saline -Foul Odor after Cleansing No -Bioengineered Tissue No -Bleeding Controlled with Pressure -Offloading No -Treatment Response Procedure Tolerated Well Pain Scale: 0-10 Numeric Is Patient Pain Free? Yes Yes 07/09/19 13:45 Wound Center Nurse 2 #5- R LAT LE -Time 13:46 -Correct Patient Yes -Correct Side, Site, Position Yes -Correct Procedure No -Procedure Performed No -Type of Procedure -Clinical Debridement -Post Debridement Size (cm) - Length 0 -Post Debridement Size (cm) - Width 0 -Post Debridement Size (cm) - Depth 0 -Total Square Cm 0 -Wound/Ulcer Outcome Healed- Epithelialized -Ulcer Cleansing -Foul Odor after Cleansing -Bioengineered Tissue -Bleeding Controlled with -Offloading -Treatment Response #4- RFA SKIN TEAR CLUSTER -Time -Correct Patient -Correct Side, Site, Position -Correct Procedure -Procedure Performed -Wound/Ulcer Outcome #3- R QUINTEROS SUPERIOR -Time 13:47 -Correct Patient Yes -Correct Side, Site, Position Yes -Correct Procedure Yes -Procedure Performed Yes -Type of Procedure Debridement -Clinical Debridement Subcutaneous -Post Debridement Size (cm) - Length 1.7 -Post Debridement Size (cm) - Width 2.1 -Post Debridement Size (cm) - Depth 0.1 -Total Square Cm 3.57 -Wound/Ulcer Outcome Failed Graft -Ulcer Cleansing Rinsed/ Irrigated with Saline -Foul Odor after Cleansing No -Bioengineered Tissue No -Expiration Date 06/18/19 -Product Lot Number [id number] -Percent Used 50 -Topical Lidocaine (%) 5 -Bleeding Controlled with Pressure -Offloading No -Treatment Response Procedure Tolerated Well #2 R QUINTEROS- INFERIOR -Time 13:47 -Correct Patient Yes -Correct Side, Site, Position Yes -Correct Procedure Yes -Procedure Performed Yes -Type of Procedure Debridement -Clinical Debridement Subcutaneous -Post Debridement Size (cm) - Length 1.4 -Post Debridement Size (cm) - Width 1.2 -Post Debridement Size (cm) - Depth 0.1 -Total Square Cm 1.68 -Wound/Ulcer Outcome Not Healed -Ulcer Cleansing Rinsed/ Irrigated with Saline -Foul Odor after Cleansing No -Bioengineered Tissue No -Bleeding Controlled with -Offloading -Treatment Response Procedure Not Tolerated Well #1 MEDIAL RLE -Time -Correct Patient -Correct Side, Site, Position -Correct Procedure -Procedure Performed -Type of Procedure -Clinical Debridement -Post Debridement Size (cm) - Length -Post Debridement Size (cm) - Width -Post Debridement Size (cm) - Depth -Total Square Cm -Wound/Ulcer Outcome -Ulcer Cleansing -Foul Odor after Cleansing -Bioengineered Tissue -Bleeding Controlled with -Offloading -Treatment Response Pain Scale: 0-10 Numeric Is Patient Pain Free? Yes Wound debrided: Right superior quinteros cluster Laterality: Right Type of Debridement: Excisional debridement Anesthesia Used: 5% Lidocaine Gel Depth: in the subcutaneous layer Percentage of wound debrided: 100 Instrument Used: 3mm curette, 5mm curette Tissue Removed: Slough and devitalized tissue Severity: Fat Layer Exposed Amount of bleeding with debridement: Mild Bleeding Controlled with: Pressure Patient tolerated procedure well - Additional Wound Wound debrided: Right inferior quinteros cluster Laterality: Right Type of Debridement: Excisional debridement Anesthesia Used: 5% Lidocaine Gel Depth: in the subcutaneous layer Percentage of wound debrided: 100 Instrument Used: 5mm curette Tissue Removed: Slough and devitalized tissue Severity: Fat Layer Exposed Amount of bleeding with debridement: Mild Bleeding Controlled with: Pressure Patient tolerated procedure: Patient tolerated procedure well Assessment/Plan Active Problems Venous stasis ulcer of right lower leg with edema of right lower leg (Chronic) Peripheral vascular disease (Chronic) Bilateral lower extremity edema (Chronic) Chronic stasis dermatitis (Chronic) Ulcer of right lower extremity with fat layer exposed (Chronic) Venous insufficiency (Chronic) Atopic dermatitis (Chronic) Assessment: 1. Venous stasis ulcers of right lower extremity. 2. Skin tear of right forearm--healed. 3. First-degree burn of back-- resolved. 4. Bilateral lower extremity edema. 5. Peripheral vascular disease, venous insufficiency, chronic. 6. Chronic stasis dermatitis. 7. Atopic dermatitis, chronic. 8. Cellulitis-- resolved. 9. T2DM. 10. A. fib. 11. Long-term current use of anticoagulants. 12. Hypertension. 13. Hypothyroidism. 14. Hyperlipidemia Plan: Debridement performed today in clinic as annotated above. Apligraf applied to right superior quinteros cluster and right inferior quinteros cluster, 100% of product was used. 3M wraps applied to right lower extremity, and double Tubigrip's applied to left lower extremity. At home wound-care instructions: Leave dressing and 3M compression wraps in place, keeping clean and dry. Continue use of triamcinolone 0.5% ointment 2-3 times daily as instructed to exposed affected areas of skin. Bring triamcinolone ointment to next visit, so nurses may apply this to right lower extremity before wrapping. Compression: 3M wrap to right lower extremity, double layer Tubigrip's to left lower extremity. Off-loading: Keep legs elevated at or above waist level when seated. Avoid prolonged standing, or dangling of the legs. Diet: Patient encouraged to increase protein and vitamin C intake while taking caution to avoid high carbohydrate and/or sugar intake. Labs/cultures/imaging: Cultures collected from right quinteros ulcer were positive only for rare staph epidermidis, which does not warrant treatment. Cultures collected at [facility] were negative. No further antibiotics prescribed. Labs and venous study from [facility] reviewed. Patient has completed vascular studies at [facility], with the following pertinent findings: Venous Doppler studies noted left saphenofemoral junction incompetent, left great saphenous vein segmentally incompetent, right great saphenous vein incompetent above the knee. Arterial studies noted triphasic waveforms at ankle level bilaterally; waveform amplitudes slightly diminished at digital level on the right, but otherwise normal bilaterally; resting ABIs normal bilaterally: Left EMBER 1.09 (DP), NC (PT), right EMBER 1.28 (DP), NC (PT). Right DBI is normal, left DBI is mildly diminished; evidence of mild, distal, small vessel arterial occlusive disease at digital level on the left. Follow-up: Return to the wound healing center on Monday for assessment of right lower extremity after first application of 3M wraps. Return to the wound healing center on 07/19/2019 for a provider appointment. The Apligraf dressing will be removed at that time. Return sooner or report to the emergency room should symptoms worsen, or new symptoms arise. Note: [employer] speech recognition aoc airspace control officer software was used to create portions of this document. Sound-alike and misspelled words, as well as other aoc airspace control officer errors may be contained in the documentation. Code Visit [id number]: [id number] Skin sub graft trnk/arm/leg
[2019-07-12 13:32] VITALS: BP 114/55; PULSE 86; RESP 18; TEMP 36.8; BMI 29.2
== END 2019-07-13 23:59 ==
LOC: WC 13:00
PROVIDERS: Family Provider Internal Medicine; PCP Internal Medicine; Referring Provider Nurse Practitioner Family; Visit Provider Nurse Practitioner Family
DX: I83.018 Varicose veins of right lower extremity with ulcer other part of lower leg (principal); L97.812 Non-pressure chronic ulcer of other part of right lower leg with fat layer exposed; R60.0 Localized edema; E11.51 Type 2 diabetes mellitus with diabetic peripheral angiopathy without gangrene; I48.91 Unspecified atrial fibrillation; Z79.01 Long term (current) use of anticoagulants; E78.5 Hyperlipidemia, unspecified; I10 Essential (primary) hypertension; S51.811A Laceration without foreign body of right forearm, initial encounter; W22.8XXA Striking against or struck by other objects, initial encounter
CPT/HCPCS: 11042; 15271; 29581; 93923; 93970; Q4101

== ENCOUNTER 2019-08-09 09:00 | Outpatient (RCR) | payer MEDICARE, SELFPAY ==
[2019-07-14 00:48] VITALS: BP 114/55; PULSE 86; RESP 18; TEMP 36.8
[2019-07-19 09:04] VITALS: BP 119/55; PULSE 91; RESP 16; TEMP 36.4; BMI 29.2
--- NOTE | 2019-07-22 08:52 | PN.PCM_ITS ---
(1) Venous stasis ulcer of right lower leg with edema of right lower leg Status: Chronic Code(s): I83.019 - Varicose veins of right lower extremity with ulcer of unspecified site; I83.891 - Varicose veins of right lower extremity with other complications; L97.919 - Non-pressure chronic ulcer of unspecified part of right lower leg with unspecified severity; R60.9 - Edema, unspecified (2) Ulcer of right lower extremity with fat layer exposed Status: Chronic Code(s): L97.912 - Non-pressure chronic ulcer of unspecified part of right lower leg with fat layer exposed (3) Bilateral lower extremity edema Status: Chronic Code(s): R60.0 - Localized edema (4) Chronic stasis dermatitis Status: Chronic Code(s): I87.2 - Venous insufficiency (chronic) (peripheral) (5) Peripheral vascular disease Status: Chronic Code(s): I73.9 - Peripheral vascular disease, unspecified (6) T2DM (type 2 diabetes mellitus) Status: Chronic Qualifiers: Diabetes mellitus longterm insulin use: without longterm use Diabetes mellitus complication status: with skin complications Diabetes mellitus complication detail: with other skin ulcer Qualified Code(s): E11.622 - Type 2 diabetes mellitus with other skin ulcer Code(s): E11.9 - Type 2 diabetes mellitus without complications (7) Venous insufficiency Status: Chronic Code(s): I87.2 - Venous insufficiency (chronic) (peripheral) Type of Wound Date of Service: 07/19/19 Chief Complaint: Right leg ulcers; burn on back (resolved); skin tear of right forearm History of Wound: Patient is a pleasant 78-year-old female who presented to the wound healing center on 05/21/2019 for an initial evaluation of right lower extremity ulcers. The ulcers of the right lower extremity occurred about 2 months prior. She was seen by her primary care provider, Dr. Brittanie Humphries, on 04/30/2019. At that time, patient was diagnosed with cellulitis and given a 10- day course of doxycycline and topical silvadene cream. Cellulitis appears to have resolved with use of antibiotics, but ulcerations persist. Patient's has been applying Silvadene to the ulcers, and covering with gauze daily. He reports a large amount of clear, nonpurulent, odorless drainage from the wound. The patient otherwise denies any fever, chills, nausea, vomiting, or diarrhea. Denies any signs of infection, including increasing pain, redness, swelling, or purulent/foul-smelling drainage from affected area. Patient has chronic swelling of bilateral lower extremities. She has a history of peripheral vascular disease with vascular interventions about 25 to 30 years ago in her left leg. She recalls having vascular studies and ABIs completed several years ago. Patient also has chronic venous stasis dermatitis, bilateral varicosities of lower extremities, type 2 diabetes mellitus, hypertension, hyperlipidemia, A. fib, and long-term use of anticoagulants. See [facility] for additional information. In mid-May 2019, patient was admitted to [facility] for a cardioversion and suffered 1st degree loera to her back as a result. She was given Silvadene cream to apply to loera, which she states helped with pain. The burn resolved within 1 week and patient was instructed to stop Silvadene cream. She has an upcoming follow-up appt with her PCP for further monitoring. On 06/11/2019, patient reports she was walking out of the bathroom and hit her right forearm on the wooden door, creating a skin tear. She reports a large amount of bleeding, which eventually subsided with compression. She had been keeping the skin tear covered with gauze dressing until evaluated at the [facility]. She was then switched to Adaptic and gauze dressings. Progress of Wound: Skin tear of right forearm is healed. Lateral RLE ulcer is healed. Remaining ulcers of right lower extremity have improved in size and appearance with use of Apligraf. Patient tolerated 3M wrap well, with no discomfort or discoloration in right lower extremity. The red, itchy rash on her right lower extremity has improved since restarting the triamcinolone ointment. The patient denies any fever, chills, nausea, vomiting, or diarrhea. Denies any increasing pain, redness, swelling, or purulent/foul-smelling drainage from affected areas. Patient has completed vascular studies, with the following pertinent findings: Venous Doppler studies noted left saphenofemoral junction incompetent, left great saphenous vein segmentally incompetent, right great saphenous vein incompetent above the knee. Arterial studies noted triphasic waveforms at ankle level bilaterally; waveform amplitudes slightly diminished at digital level on the right, but otherwise normal bilaterally; resting ABIs normal bilaterally: Left EMBER 1.09 (DP), NC (PT), right EMBER 1.28 (DP), NC (PT). Right DBI is normal, left DBI is mildly diminished; evidence of mild, distal, small vessel arterial occlusive disease at digital level on the left. - Physical Exam Vital Signs Temp Pulse Resp BP 97.5 F L 91 16 119/55 L 07/19/19 09:04 07/19/19 09:04 07/19/19 09:04 07/19/19 09:04 General: Alert, Cooperative, No apparent distress HEENT: Atraumatic, Normocephalic Oral: Moist Mucosa Neck: Supple, No JVD, Trachea Midline Lungs: Normal air movement Cardiovascular: Regular rate Extremities: No clubbing, No cyanosis, No edema - Edema resolved with use of 3M wrap to right lower extremity; several varicosities present in bilateral lower extremities, Capillary Refill Less than 3 Seconds, No Calf Tenderness, Diminished Peripheral Pulses Skin: No rashes, Ulcer/ Wound - RLE ulcers with small amounts of slough and biofilm present in wound beds. No ivonne-ulcer erythema, no purulent or foul- smelling drainage, no warmth to palpation, no tunneling or undermining of ulcers, no probing to bone. Wound Measurements and Assessment WC - Nurse 1 - General Ulcer Measurement Start: 07/19/19 09:04 Freq: Status: Active Protocol: Activity Type Activity Date Activity User E-Sign Co-Sign Detail Recorded Client Recorded Date Recorded By Document 07/19/19 09:04 [facility] [id number] 07/19/19 09:12 [facility] 07/19/19 09:04 Wound Center Nurse 1 [Ulcer Assessment] #3- R QUINTEROS SUPERIOR -Combined with other wound No -Current Size (cm) - Length 1 -Current Size (cm) - Width 1.5 -Current Size (cm) - Depth 0.1 -Total Square Cm 1.5 -Photo Taken No -Epithelialization Small 1-33% -Tunneling No -Undermining/Tunneling No -Circular Undermining No -Exudate Amt Small -Exudate Type Serous -Wound Margin Flat & Intact -Granulation Amt Small (1-33%) -Granulation Quality Red -Slough/Fibrin Yes -Necrosis Amt Medium (34-66%) -Necrotic Tissue Type Adherent Slough -Texture (Ivonne-wound Skin Appearance) Assessed, Scarring -Moisture (Ivonne-wound Skin Appearance Assessed,Dry/ ) Scaly -Color (Ivonne-wound Skin Appearance) Erythema, Hemosiderin Staining -Temperature (Ivonne-wound Skin No Abnormality Appearance) (Pt Warm) -Tenderness on Palpation (Ivonne-wound Yes Skin Appearance) -Ulcer Cleansing soapy water -Foul Odor after Cleansing No -Anesthetic Used 5% Lidocaine Gel #2 R QUINTEROS- INFERIOR -Combined with other wound No -Current Size (cm) - Length 1.4 -Current Size (cm) - Width 1 -Current Size (cm) - Depth 0.1 -Total Square Cm 1.4 -Photo Taken No -Epithelialization Small 1-33% -Tunneling No -Undermining/Tunneling No -Circular Undermining No -Exudate Amt Small -Exudate Type Serous -Wound Margin Flat & Intact -Granulation Amt None Present (0 %) -Slough/Fibrin Yes -Necrosis Amt Large (67-100%) -Necrotic Tissue Type Adherent Slough -Texture (Ivonne-wound Skin Appearance) Assessed, Scarring -Moisture (Ivonne-wound Skin Appearance Assessed,Dry/ ) Scaly -Color (Ivonne-wound Skin Appearance) Assessed, Hemosiderin Staining -Temperature (Ivonne-wound Skin No Abnormality Appearance) (Pt Warm) -Tenderness on Palpation (Ivonne-wound No Skin Appearance) -Ulcer Cleansing soapy water -Foul Odor after Cleansing No -Anesthetic Used 5% Lidocaine Gel [Edema Assessment] -Lower Limb Edema Present Yes -Right Calf (cm) 32 -Right Ankle (cm) 21.2 WC - Nurse 2 - General Ulcer CM Notes Start: 07/19/19 09:04 Freq: Status: Active Protocol: Activity Type Activity Date Activity User E-Sign Co-Sign Detail Recorded Client Recorded Date Recorded By Document 07/19/19 09:48 DV [id number] 07/19/19 09:59 DV 07/19/19 09:48 Wound Center Nurse 2 [Procedure/Treatment] #3- R QUINTEROS SUPERIOR -Time 09:50 -Correct Patient Yes -Correct Side, Site, Position Yes -Correct Procedure Yes -Procedure Performed Yes -Type of Procedure Debridement -Clinical Debridement Subcutaneous -Post Debridement Size (cm) - Length 1.5 -Post Debridement Size (cm) - Width 1.3 -Post Debridement Size (cm) - Depth 0.1 -Total Square Cm 1.95 -Wound/Ulcer Outcome Not Healed -Ulcer Cleansing Rinsed/ Irrigated with Saline -Foul Odor after Cleansing No -Bioengineered Tissue Yes -Type of bioengineered Tissue Apligraf -Expiration Date 07/19/19 -Product Lot Number [id number] -Percent Used 50 -Saline Lot Number [id number] -Bleeding Controlled with Pressure -Offloading No -Treatment Response Procedure Tolerated Well #2 R QUINTEROS- INFERIOR -Time 09:51 -Correct Patient Yes -Correct Side, Site, Position Yes -Correct Procedure Yes -Procedure Performed Yes -Type of Procedure Debridement -Clinical Debridement Subcutaneous -Post Debridement Size (cm) - Length 0.9 -Post Debridement Size (cm) - Width 1.1 -Post Debridement Size (cm) - Depth 0.1 -Total Square Cm 0.99 -Wound/Ulcer Outcome Not Healed -Ulcer Cleansing Rinsed/ Irrigated with Saline -Foul Odor after Cleansing No -Bioengineered Tissue Yes -Type of bioengineered Tissue Apligraf -Expiration Date 07/19/19 -Product Lot Number [id number] -Percent Used 50 -Saline Lot Number [id number] -Topical Lidocaine (%) 5 -Bleeding Controlled with Pressure -Offloading No -Treatment Response Procedure Tolerated Well [See Physician Procedure note for Specifics] Pain Scale: 0-10 Numeric [Pain] -Is Patient Pain Free? Yes Neurological: - - Tremors of upper extremities, chronic Psych/Mental Status: Normal Affect, Appropriate Debridement Note Post-Debridement Measurements/Treatment WC - Nurse 2 - General Ulcer CM Notes Start: 07/19/19 09:04 Freq: Status: Active Protocol: Activity Type Activity Date Activity User E-Sign Co-Sign Detail Recorded Client Recorded Date Recorded By Document 07/19/19 09:48 DV [id number] 07/19/19 09:59 DV 07/19/19 09:48 Wound Center Nurse 2 #3- R QUINTEROS SUPERIOR -Time 09:50 -Correct Patient Yes -Correct Side, Site, Position Yes -Correct Procedure Yes -Procedure Performed Yes -Type of Procedure Debridement -Clinical Debridement Subcutaneous -Post Debridement Size (cm) - Length 1.5 -Post Debridement Size (cm) - Width 1.3 -Post Debridement Size (cm) - Depth 0.1 -Total Square Cm 1.95 -Wound/Ulcer Outcome Not Healed -Ulcer Cleansing Rinsed/ Irrigated with Saline -Foul Odor after Cleansing No -Bioengineered Tissue Yes -Type of bioengineered Tissue Apligraf -Expiration Date 07/19/19 -Product Lot Number [id number] -Percent Used 50 -Saline Lot Number [id number] -Bleeding Controlled with Pressure -Offloading No -Treatment Response Procedure Tolerated Well #2 R QUINTEROS- INFERIOR -Time 09:51 -Correct Patient Yes -Correct Side, Site, Position Yes -Correct Procedure Yes -Procedure Performed Yes -Type of Procedure Debridement -Clinical Debridement Subcutaneous -Post Debridement Size (cm) - Length 0.9 -Post Debridement Size (cm) - Width 1.1 -Post Debridement Size (cm) - Depth 0.1 -Total Square Cm 0.99 -Wound/Ulcer Outcome Not Healed -Ulcer Cleansing Rinsed/ Irrigated with Saline -Foul Odor after Cleansing No -Bioengineered Tissue Yes -Type of bioengineered Tissue Apligraf -Expiration Date 07/19/19 -Product Lot Number [id number] -Percent Used 50 -Saline Lot Number [id number] -Topical Lidocaine (%) 5 -Bleeding Controlled with Pressure -Offloading No -Treatment Response Procedure Tolerated Well Pain Scale: 0-10 Numeric Is Patient Pain Free? Yes Wound debrided: Right superior quinteros cluster Laterality: Right Type of Debridement: Excisional debridement Anesthesia Used: 5% Lidocaine Gel Depth: in the subcutaneous layer Percentage of wound debrided: 100 Instrument Used: 5mm curette Tissue Removed: Slough and devitalized tissue Severity: Fat Layer Exposed Amount of bleeding with debridement: Mild Bleeding Controlled with: Pressure Patient tolerated procedure well - Additional Wound Wound debrided: Right inferior quinteros cluster Laterality: Right Type of Debridement: Excisional debridement Anesthesia Used: 5% Lidocaine Gel Depth: in the subcutaneous layer Percentage of wound debrided: 100 Instrument Used: 5mm curette Tissue Removed: Slough and devitalized tissue Severity: Fat Layer Exposed Amount of bleeding with debridement: Mild Bleeding Controlled with: Pressure Patient tolerated procedure: Patient tolerated procedure well Assessment/Plan Assessment: 1. Venous stasis ulcers of right lower extremity. 2. Skin tear of right forearm--healed. 3. First-degree burn of back-- resolved. 4. Bilateral lower extremity edema. 5. Peripheral vascular disease, venous insufficiency, chronic. 6. Chronic stasis dermatitis. 7. Atopic dermatitis, chronic. 8. Cellulitis-- resolved. 9. T2DM. 10. A. fib. 11. Long-term current use of anticoagulants. 12. Hypertension. 13. Hypothyroidism. 14. Hyperlipidemia Plan: Debridement performed today in clinic as annotated above. Apligraf #2 applied to right superior quinteros cluster and right inferior quinteros cluster, 100% of product was used. 3M wraps applied to right lower extremity, and double Tubigrip's applied to left lower extremity. At home wound-care instructions: Leave dressing and 3M compression wraps in place, keeping clean and dry. Continue use of triamcinolone 0.5% ointment 2-3 times daily as instructed to exposed affected areas of skin. Bring triamcinolone ointment to next visit, so nurses may apply this to right lower extremity before wrapping. Compression: 3M wrap to right lower extremity, double layer Tubigrip's to left lower extremity. Off-loading: Keep legs elevated at or above waist level when seated. Avoid prolonged standing, or dangling of the legs. Diet: Patient encouraged to increase protein and vitamin C intake while taking caution to avoid high carbohydrate and/or sugar intake. Labs/cultures/imaging: Cultures collected from right quinteros ulcer were positive only for rare staph epidermidis, which does not warrant treatment. Cultures collected at [facility] were negative. No further antibiotics prescribed. Labs and venous study from [facility] reviewed. Patient has completed vascular studies at [facility], with the following pertinent findings: Venous Doppler studies noted left saphenofemoral junction incompetent, left great saphenous vein segmentally incompetent, right great saphenous vein incompetent above the knee. Arterial studies noted triphasic waveforms at ankle level bilaterally; waveform amplitudes slightly diminished at digital level on the right, but otherwise normal bilaterally; resting ABIs normal bilaterally: Left EMBER 1.09 (DP), NC (PT), right EMBER 1.28 (DP), NC (PT). Right DBI is normal, left DBI is mildly diminished; evidence of mild, distal, small vessel arterial occlusive disease at digital level on the left. Follow-up: Return to the [facility]aling Center in 1 week to have 3M wrap of RLE changed. Return to the Wound Healing Center in 2 weeks for provider evaluation and dressing change. Return sooner or report to the emergency room should symptoms worsen, or new symptoms arise. Note: [employer] speech recognition construction job cost estimator software was used to create portions of this document. Sound-alike and misspelled words, as well as other construction job cost estimator errors may be contained in the documentation. [id number]: [id number] Skin sub graft trnk/arm/leg
[2019-07-26 10:27] VITALS: BP 128/59; PULSE 89; RESP 18; TEMP 36.8; BMI 29.2
--- NOTE | 2019-07-26 10:28 | WC ---
apligraf and adaptic touch left in place. periulcer intact no reddness noted
[2019-08-02 08:43] VITALS: BP 118/79; PULSE 87; RESP 18; TEMP 37.2; BMI 29.2
--- NOTE | 2019-08-02 12:01 | PN.PCM_ITS ---
(1) Venous stasis ulcer of right lower leg with edema of right lower leg Status: Chronic Current Visit: Yes Code(s): I83.019 - Varicose veins of right lower extremity with ulcer of unspecified site; I83.891 - Varicose veins of right lower extremity with other complications; L97.919 - Non-pressure chronic ulcer of unspecified part of right lower leg with unspecified severity; R60.9 - Edema, unspecified (2) Ulcer of right lower extremity with fat layer exposed Status: Chronic Current Visit: Yes Code(s): L97.912 - Non-pressure chronic ulcer of unspecified part of right lower leg with fat layer exposed (3) Bilateral lower extremity edema Status: Chronic Current Visit: Yes Code(s): R60.0 - Localized edema (4) Chronic stasis dermatitis Status: Chronic Current Visit: Yes Code(s): I87.2 - Venous insufficiency (chronic) (peripheral) (5) Peripheral vascular disease Status: Chronic Current Visit: No Code(s): I73.9 - Peripheral vascular disease, unspecified (6) T2DM (type 2 diabetes mellitus) Status: Chronic Current Visit: Yes Qualifiers: Diabetes mellitus jail insulin use: without jail use Diabetes mellitus complication status: with skin complications Diabetes mellitus complication detail: with other skin ulcer Qualified Code(s): E11.622 - Type 2 diabetes mellitus with other skin ulcer Code(s): E11.9 - Type 2 diabetes mellitus without complications (7) Venous insufficiency Status: Chronic Current Visit: Yes Code(s): I87.2 - Venous insufficiency (chronic) (peripheral) Type of Wound Date of Service: 08/02/19 Chief Complaint: Right leg ulcers; burn on back (resolved); skin tear of right forearm History of Wound: Patient is a pleasant 78-year-old female who presented to the wound healing center on 05/21/2019 for an initial evaluation of right lower extremity ulcers. The ulcers of the right lower extremity occurred about 2 months prior. She was seen by her primary care provider, Dr. Brittanie Humphries, on 04/30/2019. At that time, patient was diagnosed with cellulitis and given a 10- day course of doxycycline and topical silvadene cream. Cellulitis appears to have resolved with use of antibiotics, but ulcerations persist. Patient's has been applying Silvadene to the ulcers, and covering with gauze daily. He reports a large amount of clear, nonpurulent, odorless drainage from the wound. The patient otherwise denies any fever, chills, nausea, vomiting, or diarrhea. Denies any signs of infection, including increasing pain, redness, swelling, or purulent/foul-smelling drainage from affected area. Patient has chronic swelling of bilateral lower extremities. She has a history of peripheral vascular disease with vascular interventions about 25 to 30 years ago in her left leg. She recalls having vascular studies and ABIs completed several years ago. Patient also has chronic venous stasis dermatitis, bilateral varicosities of lower extremities, type 2 diabetes mellitus, hypertension, hyperlipidemia, A. fib, and long-term use of anticoagulants. See [facility] for additional information. In mid-May 2019, patient was admitted to [facility] for a cardioversion and suffered 1st degree loera to her back as a result. She was given Silvadene cream to apply to loera, which she states helped with pain. The burn resolved within 1 week and patient was instructed to stop Silvadene cream. She has an upcoming follow-up appt with her PCP for further monitoring. On 06/11/2019, patient reports she was walking out of the bathroom and hit her right forearm on the wooden door, creating a skin tear. She reports a large amount of bleeding, which eventually subsided with compression. She had been keeping the skin tear covered with gauze dressing until evaluated at the [facility]. She was then switched to Adaptic and gauze dressings. Progress of Wound: Skin tear of right forearm is healed. Lateral RLE ulcer is healed. Right superior and inferior quinteros ulcers have improved in size and appearance with use of Apligraf. Patient tolerated 3M wrap well, with no discomfort or discoloration in right lower extremity. The patient's right lower extremity rash has mildly worsened in the last 2 weeks. The patient denies any fever, chills, nausea, vomiting, or diarrhea. Denies any increasing pain, redness, swelling, or purulent/foul-smelling drainage from affected areas. Patient has completed vascular studies, with the following pertinent findings: Venous Doppler studies noted left saphenofemoral junction incompetent, left great saphenous vein segmentally incompetent, right great saphenous vein incompetent above the knee. Arterial studies noted triphasic waveforms at ankle level bilaterally; waveform amplitudes slightly diminished at digital level on the right, but otherwise normal bilaterally; resting ABIs normal bilaterally: Left EMBER 1.09 (DP), NC (PT), right EMBER 1.28 (DP), NC (PT). Right DBI is normal, left DBI is mildly diminished; evidence of mild, distal, small vessel arterial occlusive disease at digital level on the left. - Physical Exam Vital Signs Temp Pulse Resp BP 98.9 F 87 18 118/79 08/02/19 08:43 08/02/19 08:43 08/02/19 08:43 08/02/19 08:43 General: Alert, Cooperative, No apparent distress HEENT: Atraumatic, EOMI, Normocephalic Oral: Moist Mucosa Neck: Supple, No JVD, Trachea Midline Lungs: Normal air movement Cardiovascular: Regular rate Extremities: No clubbing, No cyanosis, Capillary Refill Less than 3 Seconds, No Calf Tenderness, Diminished Peripheral Pulses, Edema - 1+ pitting edema present in right lower extremity. Left lower extremity covered with double layer Tubigrip. Skin: Ulcer/ Wound - Right inferior and superior quinteros ulcers with small amounts of slough and biofilm present in wound beds. No ivonne-ulcer erythema, no purulent or foul-smelling drainage, no warmth to palpation. No tunneling or undermining of ulcers, no probing to bone., Rash Present - Skin of right lower extremity at ankle level appears irritated, with mild worsening of erythema and dryness of skin. Wound Measurements and Assessment WC - Nurse 1 - General Ulcer Measurement Start: 07/19/19 09:04 Freq: Status: Active Protocol: Activity Type Activity Date Activity User E-Sign Co-Sign Detail Recorded Client Recorded Date Recorded By Document 08/02/19 08:43 DL [id number] 08/02/19 08:47 DL 08/02/19 08:43 Wound Center Nurse 1 [Ulcer Assessment] #3- R QUINTEROS SUPERIOR -Current Size (cm) - Length 1 -Current Size (cm) - Width 1.2 -Current Size (cm) - Depth 0.1 -Total Square Cm 1.2 -Photo Taken No -Exudate Amt None Present -Wound Margin Distinct, Outline Attached -Granulation Amt None Present (0 %) -Necrosis Amt Large (67-100%) -Necrotic Tissue Type Adherent Slough -Structure Exposed N/A -Texture (Ivonne-wound Skin Appearance) Scarring -Moisture (Ivonne-wound Skin Appearance No Abnormality ) -Color (Ivonne-wound Skin Appearance) Ecchymosis, Hemosiderin Staining -Tenderness on Palpation (Ivonne-wound Yes Skin Appearance) -Ulcer Cleansing Wound Cleanser -Foul Odor after Cleansing No -Anesthetic Used 4% Lidocaine Solution #2 R QUINTEROS- INFERIOR -Current Size (cm) - Length 0.7 -Current Size (cm) - Width 0.6 -Current Size (cm) - Depth 0.1 -Total Square Cm 0.42 -Photo Taken No -Exudate Amt None Present -Wound Margin Thickened -Granulation Amt None Present (0 %) -Necrosis Amt Large (67-100%) -Necrotic Tissue Type Adherent Slough -Structure Exposed N/A -Texture (Ivonne-wound Skin Appearance) Scarring -Moisture (Ivonne-wound Skin Appearance No Abnormality ) -Color (Ivonne-wound Skin Appearance) Ecchymosis, Hemosiderin Staining -Temperature (Ivonne-wound Skin No Abnormality Appearance) (Pt Warm) -Tenderness on Palpation (Ivonne-wound Yes Skin Appearance) -Ulcer Cleansing Wound Cleanser -Foul Odor after Cleansing No -Anesthetic Used 4% Lidocaine Solution [Edema Assessment] -Right Calf (cm) 31 -Right Ankle (cm) 19 WC - Nurse 2 - General Ulcer CM Notes Start: 07/19/19 09:04 Freq: Status: Active Protocol: Activity Type Activity Date Activity User E-Sign Co-Sign Detail Recorded Client Recorded Date Recorded By Document 08/02/19 08:58 DV [id number] 08/02/19 09:14 DV 08/02/19 08:58 Wound Center Nurse 2 [Procedure/Treatment] #3- R QUINTEROS SUPERIOR -Time 08:59 -Correct Patient Yes -Correct Side, Site, Position Yes -Correct Procedure Yes -Procedure Performed Yes -Type of Procedure Debridement -Clinical Debridement Subcutaneous -Post Debridement Size (cm) - Length 0.8 -Post Debridement Size (cm) - Width 1.0 -Post Debridement Size (cm) - Depth 0.1 -Total Square Cm 0.80 -Wound/Ulcer Outcome Not Healed -Ulcer Cleansing Rinsed/ Irrigated with Saline -Foul Odor after Cleansing No -Bioengineered Tissue Yes -Type of bioengineered Tissue Apligraf -Expiration Date 08/09/19 -Product Lot Number [id number]. [id number] -Percent Used 50 -Bleeding Controlled with Pressure -Offloading No -Treatment Response Procedure Tolerated Well #2 R QUINTEROS- INFERIOR -Time 09:00 -Correct Patient Yes -Correct Side, Site, Position Yes -Correct Procedure Yes -Procedure Performed Yes -Type of Procedure Debridement -Clinical Debridement Subcutaneous -Post Debridement Size (cm) - Length 1.0 -Post Debridement Size (cm) - Width 0.8 -Post Debridement Size (cm) - Depth 0.1 -Total Square Cm 0.80 -Wound/Ulcer Outcome Not Healed -Ulcer Cleansing Rinsed/ Irrigated with Saline -Foul Odor after Cleansing No -Bioengineered Tissue Yes -Type of bioengineered Tissue Apligraf -Expiration Date 08/09/19 -Product Lot Number [id number]. [id number] -Percent Used 50 -Bleeding Controlled with Pressure -Offloading No -Treatment Response Procedure Tolerated Well [See Physician Procedure note for Specifics] Pain Scale: 0-10 Numeric [Pain] -Is Patient Pain Free? Yes Psych/Mental Status: Normal Affect, Appropriate Debridement Note Post-Debridement Measurements/Treatment WC - Nurse 2 - General Ulcer CM Notes Start: 07/19/19 09:04 Freq: Status: Active Protocol: Activity Type Activity Date Activity User E-Sign Co-Sign Detail Recorded Client Recorded Date Recorded By Document 07/19/19 09:48 DV [id number] 07/19/19 09:59 DV Document 08/02/19 08:58 DV [id number] 08/02/19 09:14 DV 07/19/19 08/02/19 09:48 08:58 Wound Center Nurse 2 #3- R QUINTEROS SUPERIOR -Time 09:50 08:59 -Correct Patient Yes Yes -Correct Side, Site, Position Yes Yes -Correct Procedure Yes Yes -Procedure Performed Yes Yes -Type of Procedure Debridement Debridement -Clinical Debridement Subcutaneous Subcutaneous -Post Debridement Size (cm) - Length 1.5 0.8 -Post Debridement Size (cm) - Width 1.3 1.0 -Post Debridement Size (cm) - Depth 0.1 0.1 -Total Square Cm 1.95 0.80 -Wound/Ulcer Outcome Not Healed Not Healed -Ulcer Cleansing Rinsed/ Rinsed/ Irrigated with Irrigated with Saline Saline -Foul Odor after Cleansing No No -Bioengineered Tissue Yes Yes -Type of bioengineered Tissue Apligraf Apligraf -Expiration Date 07/19/19 08/09/19 -Product Lot Number [id number]. [id number] -Percent Used 50 50 -Saline Lot Number [id number] -Bleeding Controlled with Pressure Pressure -Offloading No No -Treatment Response Procedure Procedure Tolerated Well Tolerated Well #2 R QUINTEROS- INFERIOR -Time 09:51 09:00 -Correct Patient Yes Yes -Correct Side, Site, Position Yes Yes -Correct Procedure Yes Yes -Procedure Performed Yes Yes -Type of Procedure Debridement Debridement -Clinical Debridement Subcutaneous Subcutaneous -Post Debridement Size (cm) - Length 0.9 1.0 -Post Debridement Size (cm) - Width 1.1 0.8 -Post Debridement Size (cm) - Depth 0.1 0.1 -Total Square Cm 0.99 0.80 -Wound/Ulcer Outcome Not Healed Not Healed -Ulcer Cleansing Rinsed/ Rinsed/ Irrigated with Irrigated with Saline Saline -Foul Odor after Cleansing No No -Bioengineered Tissue Yes Yes -Type of bioengineered Tissue Apligraf Apligraf -Expiration Date 07/19/19 08/09/19 -Product Lot Number [id number]. [id number] -Percent Used 50 50 -Saline Lot Number [id number] -Topical Lidocaine (%) 5 -Bleeding Controlled with Pressure Pressure -Offloading No No -Treatment Response Procedure Procedure Tolerated Well Tolerated Well Pain Scale: 0-10 Numeric Is Patient Pain Free? Yes Yes Wound debrided: Right superior quinteros cluster Laterality: Right Type of Debridement: Excisional debridement Anesthesia Used: 5% Lidocaine Gel Depth: in the subcutaneous layer Percentage of wound debrided: 100 Instrument Used: 5mm curette Tissue Removed: Slough and devitalized tissue Severity: Fat Layer Exposed Amount of bleeding with debridement: Mild Bleeding Controlled with: Pressure - Additional Wound Wound debrided: Right inferior quinteros cluster Laterality: Right Type of Debridement: Excisional debridement Anesthesia Used: 4% Lidocaine Solution Depth: in the subcutaneous layer Percentage of wound debrided: 100 Instrument Used: 5mm curette Tissue Removed: Slough and devitalized tissue Severity: Fat Layer Exposed Amount of bleeding with debridement: Mild Bleeding Controlled with: Pressure Patient tolerated procedure: Patient tolerated procedure well Assessment/Plan Active Problems Venous stasis ulcer of right lower leg with edema of right lower leg (Chronic) T2DM (type 2 diabetes mellitus) (Chronic) Bilateral lower extremity edema (Chronic) Chronic stasis dermatitis (Chronic) Ulcer of right lower extremity with fat layer exposed (Chronic) Venous insufficiency (Chronic) Assessment: 1. Venous stasis ulcers of right lower extremity. 2. Skin tear of right forearm--healed. 3. First-degree burn of back-- resolved. 4. Bilateral lower extremity edema. 5. Peripheral vascular disease, venous insufficiency, chronic. 6. Chronic stasis dermatitis. 7. Atopic dermatitis, chronic. 8. Cellulitis-- resolved. 9. T2DM. 10. A. fib. 11. Long-term current use of anticoagulants. 12. Hypertension. 13. Hypothyroidism. 14. Hyperlipidemia Plan: Debridement performed today in clinic as annotated above. Apligraf #3 applied to right superior quinteros cluster and right inferior quinteros cluster, 100% of product was used. Apligraf was covered with Adaptic touch and Steri-Strips. Sleeve will be applied to right lower extremity before applying 3M wraps, to avoid irritation of right lower extremity skin. 3M wraps applied to right lower extremity, and double Tubigrip's applied to left lower extremity. At home wound-care instructions: Leave dressing and 3M compression wraps in place, keeping clean and dry. Continue use of triamcinolone 0.5% ointment 2-3 times daily as instructed to exposed affected areas of skin. Bring triamcinolone ointment to next visit, so nurses may apply this to right lower extremity before wrapping. Compression: 3M wrap to right lower extremity (with sleeve beneath), double layer Tubigrip's to left lower extremity. Off-loading: Keep legs elevated at or above waist level when seated. Avoid prolonged standing, or dangling of the legs. Diet: Patient encouraged to increase protein and vitamin C intake while taking caution to avoid high carbohydrate and/or sugar intake. Labs/cultures/imaging: Cultures collected from right quinteros ulcer were positive only for rare staph epidermidis, which does not warrant treatment. Cultures collected at [facility] were negative. No further antibiotics prescribed. Labs and venous study from [facility] reviewed. Patient has completed vascular studies at [facility], with the following pertinent findings: Venous Doppler studies noted left saphenofemoral junction incompetent, left great saphenous vein segmentally incompetent, right great saphenous vein incompetent above the knee. Arterial studies noted triphasic waveforms at ankle level bilaterally; waveform amplitudes slightly diminished at digital level on the right, but otherwise normal bilaterally; resting ABIs normal bilaterally: Left EMBER 1.09 (DP), NC (PT), right EMBER 1.28 (DP), NC (PT). Right DBI is normal, left DBI is mildly diminished; evidence of mild, distal, small vessel arterial occlusive disease at digital level on the left. Follow-up: Return to the [facility]aling Center in 1 week to have 3M wrap of RLE changed. Return to the W[facility] Healing Center in 2 weeks for provider evaluation and dressing change. Return sooner or report to the emergency room should symptoms worsen, or new symptoms arise. Note: A [employer] speech recognition agile developer software was used to create portions of this document. Sound-alike and misspelled words, as well as other agile developer errors may be contained in the documentation. [id number]: [id number] Skin sub graft trnk/arm/leg
[2019-08-09 09:19] VITALS: BP 135/55; PULSE 88; RESP 16; TEMP 36.7; BMI 29.2
== END 2019-08-13 23:59 ==
LOC: WC 09:00
PROVIDERS: Family Provider Internal Medicine; PCP Internal Medicine; Referring Provider Nurse Practitioner Family; Visit Provider Nurse Practitioner Family
DX: I83.018 Varicose veins of right lower extremity with ulcer other part of lower leg (principal); L97.812 Non-pressure chronic ulcer of other part of right lower leg with fat layer exposed; E11.51 Type 2 diabetes mellitus with diabetic peripheral angiopathy without gangrene; I87.2 Venous insufficiency (chronic) (peripheral); S51.811A Laceration without foreign body of right forearm, initial encounter; W22.8XXA Striking against or struck by other objects, initial encounter; I48.91 Unspecified atrial fibrillation; Z79.01 Long term (current) use of anticoagulants; I10 Essential (primary) hypertension; E78.5 Hyperlipidemia, unspecified
CPT/HCPCS: 15271; 29581; Q4101

== ENCOUNTER 2019-08-23 08:00 | Outpatient (RCR) | payer MEDICARE, SELFPAY ==
[2019-08-14 00:38] VITALS: BP 135/55; PULSE 88; RESP 16; TEMP 36.7
[2019-08-16 09:10] VITALS: BP 100/31; PULSE 88; RESP 22; TEMP 36.8; BMI 29.2
--- NOTE | 2019-08-16 09:54 | PCM.WC.PN ---
(1) Venous stasis ulcer of right lower leg with edema of right lower leg Status: Chronic Current Visit: Yes Code(s): I83.019 - Varicose veins of right lower extremity with ulcer of unspecified site; I83.891 - Varicose veins of right lower extremity with other complications; L97.919 - Non-pressure chronic ulcer of unspecified part of right lower leg with unspecified severity; R60.9 - Edema, unspecified (2) Peripheral vascular disease Status: Chronic Current Visit: Yes Code(s): I73.9 - Peripheral vascular disease, unspecified (3) T2DM (type 2 diabetes mellitus) Status: Chronic Current Visit: Yes 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 [facility] use Diabetes mellitus complication status: with skin complications Diabetes mellitus complication detail: with other skin ulcer Qualified Code(s): E11.622 - Type 2 diabetes mellitus with other skin ulcer Code(s): E11.9 - Type 2 diabetes mellitus without complications (4) [facility] current use of anticoagulant Status: Chronic Current Visit: Yes Code(s): 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 The ulcers of the right lower extremity occurred about 2 months prior. She was seen by her primary care provider, Dr. Brittanie Humphries, on 04/30/2019. At that time, patient was diagnosed with cellulitis and given a 10-day course of doxycycline and topical silvadene cream. Cellulitis appears to have resolved with use of antibiotics, but ulcerations persist. Patient's has been applying Silvadene to the ulcers, and covering with gauze daily. He reports a large amount of clear, nonpurulent, odorless drainage from the wound. The patient otherwise denies any fever, chills, nausea, vomiting, or diarrhea. Denies any signs of infection, including increasing pain, redness, swelling, or purulent/foul-smelling drainage from affected area. Patient has chronic swelling of bilateral lower extremities. She has a history of peripheral vascular disease with vascular interventions about 25 to 30 years ago in her left leg. She recalls having vascular studies and ABIs completed several years ago. Patient also has chronic venous stasis dermatitis, bilateral varicosities of lower extremities, type 2 diabetes mellitus, hypertension, hyperlipidemia, A. fib, and long-term use of anticoagulants. See [facility] for additional information. In mid-May 2019, patient was admitted to [facility] for a cardioversion and suffered 1st degree loera to her back as a result. She was given Silvadene cream to apply to loera, which she states helped with pain. The burn resolved within 1 week and patient was instructed to stop Silvadene cream. She has an upcoming follow-up appt with her PCP for further monitoring. On 06/11/2019, patient reports she was walking out of the bathroom and hit her right forearm on the wooden door, creating a skin tear. She reports a large amount of bleeding, which eventually subsided with compression. She had been keeping the skin tear covered with gauze dressing until evaluated at the [facility]. She was then switched to Adaptic and gauze dressings. Progress of Wound: Skin tear of right forearm is healed. Lateral RLE ulcer is healed. Right superior ulcer is healed. Right inferior quinteros ulcer have improved in size and appearance with use of Apligraf. Patient tolerated 3M wrap well, with no discomfort or discoloration in right lower extremity. The patient's right lower extremity rash has resolved. Will place Verona over the right inferior ulcer and use 3M2 Layer wrap for another week and order a Juxtalite compression wrap for the right lower leg. The patient denies any fever, chills, nausea, vomiting, or diarrhea. Denies any increasing pain, redness, swelling, or purulent/foul-smelling drainage from affected areas. Patient has completed vascular studies, with the following pertinent findings: Venous Doppler studies noted left saphenofemoral junction incompetent, left great saphenous vein segmentally incompetent, right great saphenous vein incompetent above the knee. Arterial studies noted triphasic waveforms at ankle level bilaterally; waveform amplitudes slightly diminished at digital level on the right, but otherwise normal bilaterally; resting ABIs normal bilaterally: Left EMBER 1.09 (DP), NC (PT), right EMBER 1.28 (DP), NC (PT). Right DBI is normal, left DBI is mildly diminished; evidence of mild, distal, small vessel arterial occlusive disease at digital level on the left. - Physical Exam Vital Signs Temp Pulse Resp BP 98.2 F 88 22 H 100/31 L 08/16/19 09:10 08/16/19 09:10 08/16/19 09:10 08/16/19 09:10 General: Alert, Oriented x3, Cooperative HEENT: Atraumatic Oral: Moist Mucosa Cardiovascular: Regular rate Extremities: Edema Skin: Ulcer/ Wound - Right leg superior ulcer is healed today. Right leg inferior ulcer is much improved. Wound Measurements and Assessment WC - Nurse 1 - General Ulcer Measurement Start: 08/16/19 09:10 Freq: Status: Active Protocol: Activity Type Activity Date Activity User E-Sign Co-Sign Detail Recorded Client Recorded Date Recorded By Document 08/16/19 09:10 DL [id number] 08/16/19 09:24 DL 08/16/19 09:10 Wound Center Nurse 1 [Ulcer Assessment] #3- R QUINTEROS SUPERIOR -Current Size (cm) - Length 1.2 -Current Size (cm) - Width 1.2 -Current Size (cm) - Depth 0.1 -Total Square Cm 1.44 -Photo Taken No -Exudate Amt Small -Exudate Type Serosanguineous -Wound Margin Distinct, Outline Attached -Granulation Amt Medium (34-66%) -Granulation Quality Pale,[place] -Necrosis Amt Medium (34-66%) -Necrotic Tissue Type Adherent Slough -Structure Exposed N/A -Texture (Leena-wound Skin Appearance) Scarring -Moisture (Leena-wound Skin Appearance No Abnormality ) -Color (Leena-wound Skin Appearance) Hemosiderin Staining,Rubor -Temperature (Leena-wound Skin No Abnormality Appearance) (Pt Warm) -Tenderness on Palpation (Leena-wound No Skin Appearance) -Ulcer Cleansing Wound Cleanser -Foul Odor after Cleansing No -Anesthetic Used 4% Lidocaine Solution #2 R QUINTEROS- INFERIOR -Current Size (cm) - Length 1.2 -Current Size (cm) - Width 1.5 -Current Size (cm) - Depth 0.1 -Total Square Cm 1.80 -Photo Taken No -Exudate Amt Small -Exudate Type Serosanguineous -Wound Margin Distinct, Outline Attached -Granulation Amt Medium (34-66%) -Granulation Quality Pale,[place] -Necrosis Amt Medium (34-66%) -Necrotic Tissue Type Adherent Slough -Structure Exposed N/A -Texture (Leena-wound Skin Appearance) Scarring -Moisture (Leena-wound Skin Appearance Dry/Scaly ) -Color (Leena-wound Skin Appearance) Hemosiderin Staining,Rubor -Temperature (Leena-wound Skin No Abnormality Appearance) (Pt Warm) -Tenderness on Palpation (Leena-wound No Skin Appearance) -Ulcer Cleansing Wound Cleanser -Foul Odor after Cleansing No -Anesthetic Used 4% Lidocaine Solution [Edema Assessment] -Right Calf (cm) 31 -Right Ankle (cm) 20 WC - Nurse 2 - General Ulcer CM Notes Start: 08/16/19 09:10 Freq: Status: Active Protocol: Activity Type Activity Date Activity User E-Sign Co-Sign Detail Recorded Client Recorded Date Recorded By Document 08/16/19 09:36 DL [id number] 08/16/19 09:42 DL 08/16/19 09:36 Wound Center Nurse 2 [Procedure/Treatment] #3- R QUINTEROS SUPERIOR -Time 09:40 -Correct Patient Yes -Correct Side, Site, Position Yes -Correct Procedure No -Procedure Performed No -Post Debridement Size (cm) - Length 0 -Post Debridement Size (cm) - Width 0 -Post Debridement Size (cm) - Depth 0 -Total Square Cm 0 -Wound/Ulcer Outcome Healed- Epithelialized #2 R QUINTEROS- INFERIOR -Time 09:40 -Correct Patient Yes -Correct Side, Site, Position Yes -Correct Procedure Yes -Procedure Performed Yes -Type of Procedure Debridement -Clinical Debridement Subcutaneous -Post Debridement Size (cm) - Length 1.2 -Post Debridement Size (cm) - Width 0.3 -Post Debridement Size (cm) - Depth 0.1 -Total Square Cm 0.36 -Wound/Ulcer Outcome Not Healed -Ulcer Cleansing Rinsed/ Irrigated with Saline -Foul Odor after Cleansing No -Bioengineered Tissue No -Bleeding Controlled with Pressure -Offloading No -Treatment Response Procedure Tolerated Well [See Physician Procedure note for Specifics] Pain Scale: 0-10 Numeric [Pain] -Is Patient Pain Free? Yes Musculoskeletal: No Muscle Wasting Neurological: Neuro grossly intact Psych/Mental Status: Normal Affect, Appropriate Debridement Note Post-Debridement Measurements/Treatment WC - Nurse 2 - General Ulcer CM Notes Start: 08/16/19 09:10 Freq: Status: Active Protocol: Activity Type Activity Date Activity User E-Sign Co-Sign Detail Recorded Client Recorded Date Recorded By Document 08/16/19 09:36 DL [id number] 08/16/19 09:42 DL 08/16/19 09:36 Wound Center Nurse 2 #3- R QUINTEROS SUPERIOR -Time 09:40 -Correct Patient Yes -Correct Side, Site, Position Yes -Correct Procedure No -Procedure Performed No -Post Debridement Size (cm) - Length 0 -Post Debridement Size (cm) - Width 0 -Post Debridement Size (cm) - Depth 0 -Total Square Cm 0 -Wound/Ulcer Outcome Healed- Epithelialized #2 R QUINTEROS- INFERIOR -Time 09:40 -Correct Patient Yes -Correct Side, Site, Position Yes -Correct Procedure Yes -Procedure Performed Yes -Type of Procedure Debridement -Clinical Debridement Subcutaneous -Post Debridement Size (cm) - Length 1.2 -Post Debridement Size (cm) - Width 0.3 -Post Debridement Size (cm) - Depth 0.1 -Total Square Cm 0.36 -Wound/Ulcer Outcome Not Healed -Ulcer Cleansing Rinsed/ Irrigated with Saline -Foul Odor after Cleansing No -Bioengineered Tissue No -Bleeding Controlled with Pressure -Offloading No -Treatment Response Procedure Tolerated Well Pain Scale: 0-10 Numeric Is Patient Pain Free? Yes Wound debrided: Inferior leg ulcer Laterality: Right Type of Debridement: Excisional debridement Anesthesia Used: 4% Lidocaine Solution, 5% Lidocaine Gel Depth: Down to and including healthy tissue, in the subcutaneous layer Percentage of wound debrided: 100 Instrument Used: 3mm curette Tissue Removed: Subcutaneous tissue and slough Severity: Limited To Skin Breakdown Amount of bleeding with debridement: Mild Bleeding Controlled with: Pressure Patient tolerated procedure well Assessment/Plan Active Problems Venous stasis ulcer of right lower leg with edema of right lower leg (Chronic) Peripheral vascular disease (Chronic) T2DM (type 2 diabetes mellitus) (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 Venous stasis ulcers of right lower extremity. 2. Skin tear of right forearm--healed. 3. First-degree burn of back-- resolved. 4. Bilateral lower extremity edema. 5. Peripheral vascular disease, venous insufficiency, chronic. 6. Chronic stasis dermatitis. 7. Atopic dermatitis, chronic. 8. Cellulitis-- resolved. 9. T2DM. 10. A. fib. 11. Long-term current use of anticoagulants. 12. Hypertension. 13. Hypothyroidism. 14. Hyperlipidemia Plan: Debridement performed today in clinic as annotated above. She has had 3 applications of Apligraf #3 applied. The right leg superior ucler is healed and the right leg inferior ulcer is much improved. Will apply Verona to the inferior right leg ulcer and place her in 3M double layer wraps applied to right lower extremity, and double Tubigrip's applied to left lower extremity. Will order Juxtalite compression stocking for the right lower leg. At home wound-care instructions: Leave dressing and 3M compression wraps in place, keeping clean and dry. Off-loading: Keep legs elevated at or above waist level when seated. Avoid prolonged standing, or dangling of the legs. Diet: Patient encouraged to increase protein and vitamin C intake while taking caution to avoid high carbohydrate and/or sugar intake. Labs/cultures/imaging: Cultures collected from right quinteros ulcer were positive only for rare staph epidermidis, which does not warrant treatment. Cultures collected at [facility] were negative. No further antibiotics prescribed. Labs and venous study from [facility] reviewed. Patient has completed vascular studies at [facility], with the following pertinent findings: Venous Doppler studies noted left saphenofemoral junction incompetent, left great saphenous vein segmentally incompetent, right great saphenous vein incompetent above the knee. Arterial studies noted triphasic waveforms at ankle level bilaterally; waveform amplitudes slightly diminished at digital level on the right, but otherwise normal bilaterally; resting ABIs normal bilaterally: Left EMBER 1.09 (DP), NC (PT), right EMBER 1.28 (DP), NC (PT). Right DBI is normal, left DBI is mildly diminished; evidence of mild, distal, small vessel arterial occlusive disease at digital level on the left. Follow-up: Return to the Wound Healing Center in 1 week to have 3M wrap of RLE removed and instruction on how to use Juxtalite compression stocking. Return sooner or report to the emergency room should symptoms worsen, or new symptoms arise. Note: [employer] speech recognition portrait studio photographer software was used to create portions of this document. Sound-alike and misspelled words, as well as other portrait studio photographer errors may be contained in the documentation. [id number]: [id number] Lachelle subq tissue 20 sq cm/<
[2019-08-23 09:17] VITALS: BP 102/58; PULSE 90; RESP 18; TEMP 36.1; BMI 29.2
--- NOTE | 2019-08-23 11:43 | PCM.WC.PN ---
(1) Venous stasis ulcer of right lower leg with edema of right lower leg Status: Chronic Current Visit: Yes Code(s): I83.019 - Varicose veins of right lower extremity with ulcer of unspecified site; I83.891 - Varicose veins of right lower extremity with other complications; L97.919 - Non-pressure chronic ulcer of unspecified part of right lower leg with unspecified severity; R60.9 - Edema, unspecified (2) Peripheral vascular disease Status: Chronic Current Visit: Yes Code(s): I73.9 - Peripheral vascular disease, unspecified (3) T2DM (type 2 diabetes mellitus) Status: Chronic Current Visit: Yes 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 use Diabetes mellitus complication status: with skin complications Diabetes mellitus complication detail: with other skin ulcer Qualified Code(s): E11.622 - Type 2 diabetes mellitus with other skin ulcer Code(s): E11.9 - Type 2 diabetes mellitus without complications (4) 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 The ulcers of the right lower extremity occurred about 2 months prior. She was seen by her primary care provider, Dr. Brittanie Humphries, on 04/30/2019. At that time, patient was diagnosed with cellulitis and given a 10-day course of doxycycline and topical silvadene cream. Cellulitis appears to have resolved with use of antibiotics, but ulcerations persist. Patient's has been applying Silvadene to the ulcers, and covering with gauze daily. He reports a large amount of clear, nonpurulent, odorless drainage from the wound. The patient otherwise denies any fever, chills, nausea, vomiting, or diarrhea. Denies any signs of infection, including increasing pain, redness, swelling, or purulent/foul-smelling drainage from affected area. Patient has chronic swelling of bilateral lower extremities. She has a history of peripheral vascular disease with vascular interventions about 25 to 30 years ago in her left leg. She recalls having vascular studies and ABIs completed several years ago. Patient also has chronic venous stasis dermatitis, bilateral varicosities of lower extremities, type 2 diabetes mellitus, hypertension, hyperlipidemia, A. fib, and long-term use of anticoagulants. See [facility] for additional information. In mid-May 2019, patient was admitted to [facility] for a cardioversion and suffered 1st degree loera to her back as a result. She was given Silvadene cream to apply to loera, which she states helped with pain. The burn resolved within 1 week and patient was instructed to stop Silvadene cream. She has an upcoming follow-up appt with her PCP for further monitoring. On 06/11/2019, patient reports she was walking out of the bathroom and hit her right forearm on the wooden door, creating a skin tear. She reports a large amount of bleeding, which eventually subsided with compression. She had been keeping the skin tear covered with gauze dressing until evaluated at the [facility]. She was then switched to Adaptic and gauze dressings. Progress of Wound: Skin tear of right forearm is healed. Lateral RLE ulcer is healed. Right superior ulcer is healed. Right inferior quinteros ulcer is healed today. Patient tolerated 3M wrap well, with no discomfort or discoloration in right lower extremity. Her edema is much improved in her right lower extremity because of the 3M2L wrap. - Physical Exam Vital Signs Temp Pulse Resp BP 97 F L 90 18 102/58 L 08/23/19 09:17 08/23/19 09:17 08/23/19 09:17 08/23/19 09:17 General: Alert, Oriented x3, Cooperative HEENT: Atraumatic Oral: Moist Mucosa Lungs: Normal air movement Cardiovascular: Regular rate Extremities: Capillary Refill Less than 3 Seconds, Edema Skin: Ulcer/ Wound - Right inferior ulcer healed today. The other ulcers remain healed. Wound Measurements and Assessment WC - Nurse 1 - General Ulcer Measurement Start: 08/16/19 09:10 Freq: Status: Active Protocol: Activity Type Activity Date Activity User E-Sign Co-Sign Detail Recorded Client Recorded Date Recorded By Document 08/23/19 09:17 VASILE [id number] 08/23/19 09:19 RB 08/23/19 09:17 Wound Center Nurse 1 [Ulcer Assessment] #2 R QUINTEROS- INFERIOR -Combined with other wound No -Current Size (cm) - Length 0.1 -Current Size (cm) - Width 0.1 -Current Size (cm) - Depth 0.1 -Total Square Cm 0.01 -Tunneling No -Undermining/Tunneling No -Circular Undermining No -Exudate Amt None Present -Wound Margin Flat & Intact -Granulation Amt None Present (0 %) -Slough/Fibrin Yes -Necrosis Amt Large (67-100%) -Necrotic Tissue Type Adherent Slough -Structure Exposed N/A -Texture (Leena-wound Skin Appearance) Assessed -Moisture (Leena-wound Skin Appearance Dry/Scaly ) -Color (Leena-wound Skin Appearance) Assessed -Temperature (Leena-wound Skin No Abnormality Appearance) (Pt Warm) -Tenderness on Palpation (Leena-wound No Skin Appearance) -Ulcer Cleansing Wound Cleanser -Foul Odor after Cleansing No -Anesthetic Used 5% Lidocaine Gel [Edema Assessment] -Lower Limb Edema Present Yes -Right Calf (cm) 32 -Right Ankle (cm) 20.5 WC - Nurse 2 - General Ulcer CM Notes Start: 08/16/19 09:10 Freq: Status: Active Protocol: Activity Type Activity Date Activity User E-Sign Co-Sign Detail Recorded Client Recorded Date Recorded By Document 08/23/19 09:33 DV [id number] 08/23/19 09:36 DV 08/23/19 09:33 Wound Center Nurse 2 [Procedure/Treatment] #2 R QUINTEROS- INFERIOR -Time 09:34 -Correct Patient Yes -Correct Side, Site, Position Yes -Correct Procedure No -Procedure Performed No -Post Debridement Size (cm) - Length 0 -Post Debridement Size (cm) - Width 0 -Post Debridement Size (cm) - Depth 0 -Total Square Cm 0 -Wound/Ulcer Outcome Healed- Epithelialized [See Physician Procedure note for Specifics] Pain Scale: 0-10 Numeric [Pain] -Is Patient Pain Free? Yes Musculoskeletal: No Tenderness to Palpation of Joints or Extremities Neurological: Neuro grossly intact Psych/Mental Status: Normal Affect, Appropriate Debridement Note Post-Debridement Measurements/Treatment WC - Nurse 2 - General Ulcer CM Notes Start: 08/16/19 09:10 Freq: Status: Active Protocol: Activity Type Activity Date Activity User E-Sign Co-Sign Detail Recorded Client Recorded Date Recorded By Document 08/16/19 09:36 DL [id number] 08/16/19 09:42 DL Document 08/23/19 09:33 DV [id number] 08/23/19 09:36 DV 08/16/19 08/23/19 09:36 09:33 Wound Center Nurse 2 #3- R QUINTEROS SUPERIOR -Time 09:40 -Correct Patient Yes -Correct Side, Site, Position Yes -Correct Procedure No -Procedure Performed No -Post Debridement Size (cm) - Length 0 -Post Debridement Size (cm) - Width 0 -Post Debridement Size (cm) - Depth 0 -Total Square Cm 0 -Wound/Ulcer Outcome Healed- Epithelialized #2 R QUINTEROS- INFERIOR -Time 09:40 09:34 -Correct Patient Yes Yes -Correct Side, Site, Position Yes Yes -Correct Procedure Yes No -Procedure Performed Yes No -Type of Procedure Debridement -Clinical Debridement Subcutaneous -Post Debridement Size (cm) - Length 1.2 0 -Post Debridement Size (cm) - Width 0.3 0 -Post Debridement Size (cm) - Depth 0.1 0 -Total Square Cm 0.36 0 -Wound/Ulcer Outcome Not Healed Healed- Epithelialized -Ulcer Cleansing Rinsed/ Irrigated with Saline -Foul Odor after Cleansing No -Bioengineered Tissue No -Bleeding Controlled with Pressure -Offloading No -Treatment Response Procedure Tolerated Well Pain Scale: 0-10 Numeric Is Patient Pain Free? 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 Venous stasis ulcers of right lower extremity. 2. Skin tear of right forearm--healed. 3. First-degree burn of back-- resolved. 4. Bilateral lower extremity edema. 5. Peripheral vascular disease, venous insufficiency, chronic. 6. Chronic stasis dermatitis. 7. Atopic dermatitis, chronic. 8. Cellulitis-- resolved. 9. T2DM. 10. A. fib. 11. Long-term current use of anticoagulants. 12. Hypertension. 13. Hypothyroidism. 14. Hyperlipidemia Plan: Her right inferior ulcer is healed today. She will continue adaptic over the fragile new skin and cover with gauze for one week. She has had the 3M double layer wrap in place and her right lower leg edema has resolved. She never received the Juxtalite compression wrap for her right lower leg. She has new compression stockings that appear to be medical grade. Will have her wear these instead and will cancel the Juxtalite compression. Encouraged her to continue to lie down several times per day to help with edema. She will be discharged today and will follow up as needed. Office Visits / Consults: [id number] OV [id number] Est
== END 2019-09-12 23:59 ==
LOC: WC 08:00
PROVIDERS: Family Provider Internal Medicine; PCP Internal Medicine; Referring Provider Nurse Practitioner Family; Visit Provider Nurse Practitioner Family
DX: I83.018 Varicose veins of right lower extremity with ulcer other part of lower leg (principal); L97.812 Non-pressure chronic ulcer of other part of right lower leg with fat layer exposed; E11.622 Type 2 diabetes mellitus with other skin ulcer; E11.51 Type 2 diabetes mellitus with diabetic peripheral angiopathy without gangrene; Z79.01 Long term (current) use of anticoagulants; R60.0 Localized edema; I48.91 Unspecified atrial fibrillation; E78.5 Hyperlipidemia, unspecified; I10 Essential (primary) hypertension
CPT/HCPCS: 11042; 99213; G0463